=== PATIENT | male | born 1990 | race Caucasian/White ===

== ENCOUNTER 2016-09-22 04:36 | Emergency (ER) | payer SELFPAY ==
[2016-09-22 04:46] VITALS: BP 211/125
--- NOTE | 2016-09-22 05:01 | EDM.PDOC ---
ED HPI GENERAL MEDICAL PROBLEM - General Chief Complaint: Respiratory Problem Stated Complaint: sob chest pain sore throat Time Seen by Provider: 09/22/16 05:01 - History of Present Illness INITIAL COMMENTS - FREE TEXT/NARRATIVE: 25-year-old male presents emergency room with a continued cough. Patient's been coughing for over 2 weeks. He just finished a round of doxycycline about a week ago. He is not getting any better. He's had any fevers or chills he hasn't been going cough that sometimes makes him want to throw up. Patient has underlying reactive airway disease and asthma he uses his nebulizer as directed and uses his MDI at least 4 times a day. He started to get some chest wall irritation with deep breathing and has been using Tylenol and Motrin for this. It helps somewhat Middle Chest Pain Score (Numeric/FACES): 8 - Related Data Allergies Allergy/AdvReac Type Severity Reaction Status Date / Time No Known Allergies Allergy Verified 09/22/16 04:46 Home Meds: Home Meds Lisinopril [Prinivil] 40 mg PO DAILY 07/12/14 [History] Albuterol [Proventil HFA] 6.7 gm INH Q4H PRN 09/22/16 [History] Budesonide/Formoterol Fumarate [Symbicort 160-4.5 Mcg Inhaler] 1 puff IH DAILY 09/22/16 [History] Clarithromycin [Biaxin] 500 mg PO BID #20 tablet 09/22/16 [Rx] Past Medical History HEENT History: Reports: Other (see below) Other HEENT History: strep throat Cardiovascular History: Reports: Hypertension Respiratory History: Reports: Asthma Other Respiratory History: hospitalized with pleurisy Musculoskeletal History: Reports: Gout Social & Family History - Family History Family Medical History: Noncontributory - Tobacco Use Smoking Status *Q: Never Smoker Years of Tobacco use: 10 Packs/Tins Daily: 1 Used Tobacco, but Quit: Yes Month Tobacco Last Used: Second Hand Smoke Exposure: No - Caffeine Use Caffeine Use: Reports: None - Alcohol Use Days Per Week of Alcohol Use: 7 Number of Drinks Per Day: 3 Total Drinks Per Week: 21 - Recreational Drug Use Recreational Drug Use: Yes Recreational Drug Type: Reports: Marijuana/Hashish Recreational Drug Use Frequency: Socially ED ROS GENERAL - Review of Systems Review Of Systems: See Below Constitutional: Reports: no symptoms HEENT: Reports: Other (Discuss some vague congestion) Respiratory: Reports: Shortness of Breath, Wheezing (He has wheezing if he doesn 't uses inhaler), Pleuritic Chest Pain, Cough, Sputum Cardiovascular: Denies: Chest pain, Dyspnea on exertion, Palpitations GI/Abdominal: Reports: No symptoms Neurological: Reports: No Symptoms ED EXAM, GENERAL - Physical Exam Exam: See Below Exam Limited By: No limitations General Appearance: alert, no apparent distress Ears: normal external exam, normal canal, hearing grossly normal, normal TMs Nose: normal inspection, other (Mild mucosal erythema). No: clear rhinorrhea Throat/Mouth: Normal inspection, Normal lips, Normal teeth, Normal gums, Normal oropharynx, Normal voice, No airway compromise Head: atraumatic, normocephalic Neck: normal inspection, supple, non-tender, full range of motion. No: lymphadenopathy (L), lymphadenopathy (R) Cardiovascular: regular rate, rhythm, no edema, no murmur Course - Vital Signs Last Recorded V/S: Last Vital Signs Temp 35.8 C 09/22/16 04:43 Pulse 105 H 09/22/16 04:43 Resp 22 H 09/22/16 04:43 BP 211/125 H 09/22/16 04:43 Pulse Ox 95 09/22/16 04:43 - Orders/Labs/Meds Orders: Active Orders 24 hr Category Date Time Status Chest 2V [CR] Stat Exams 09/22/16 05:17 Taken CULTURE STREP A CONFIRMATION [] Stat Lab 09/22/16 05:20 Results STREP SCRN A RAPID W CULT CONF [RM] Stat Lab 09/22/16 05:20 Results - Re-Assessments/Exams Free Text/Narrative Re-Assessment/Exam: 09/22/16 06:07 Chest x-ray doubtful for infiltrate or other acute changes rapid strep negative. The patient recently finished a course of doxycycline under milligrams twice daily he finished this about a week ago he was on a prednisone taper this did not seem to help. We'll try him on Biaxin. Departure - Departure Time of Disposition: 06:15 Disposition: Home, Self-Care 01 Clinical Impression: Bronchitis - Discharge Information Prescriptions: Clarithromycin [Biaxin] 500 mg PO BID #20 tablet Referrals: Ai Menon NP [Primary Care Provider] - Forms: ED Department Discharge Additional Instructions: Return to the emergency room with any questions or problems. You have been started on Biaxin this is an antibiotic take it twice daily until all gone. Followup in the clinic early next week for recheck. - My Orders Last 24 Hours: My Active Orders 09/22/16 05:17 Chest 2V [CR] Stat 09/22/16 05:20 CULTURE STREP A CONFIRMATION [RM] Stat STREP SCRN A RAPID W CULT CONF [RM] Stat - Assessment/Plan Last 24 Hours: My Active Orders 09/22/16 05:17 Chest 2V [CR] Stat 09/22/16 05:20 CULTURE STREP A CONFIRMATION [RM] Stat STREP SCRN A RAPID W CULT CONF [RM] Stat
--- NOTE | 2016-09-22 08:59 | CR ---
Chest: Two views of the chest were obtained. Comparison: Previous chest x-ray of 01/28/16. Heart size and mediastinum are normal. Lungs are clear. Bony structures are unremarkable for the patient's age. Slight deformity partially visualized within the right acromioclavicular joint presumably due to old trauma. Impression: 1. Incidental finding. Nothing acute is identified on two-view chest x-ray. Diagnostic code #2
== END 2016-09-22 06:25 | disposition home or self-care (01) ==
LOC: JD.ED 04:36
DX: J40 Bronchitis, not specified as acute or chronic (principal); I10 Essential (primary) hypertension; M10.9 Gout, unspecified
CPT/HCPCS: 71020; 71020-26; 87081; 87430; 99283; 99284

== ENCOUNTER 2016-10-21 15:43 | Emergency (ER) | payer SELFPAY ==
[2016-10-21 15:59] VITALS: BP 160/93
--- NOTE | 2016-10-21 16:09 | EDM.PDOC ---
ED HPI GENERAL MEDICAL PROBLEM - General Chief Complaint: Lower Extremity Injury/Pain Stated Complaint: L ANKLE PAIN Time Seen by Provider: 10/21/16 16:08 - History of Present Illness INITIAL COMMENTS - FREE TEXT/NARRATIVE: A 25-year-old male presents emergency room with L ankle pain. Yesterday the patient was getting out of his car and twisted his ankle he heard a pop really did not develop any significant discomfort to later last night he awoke with significant pain on the outside of his ankle and to a lesser degree in the inside of his ankle. Patient has a history recurrent ankle sprains on the side. He injured it when he is playing football and he injured it at another time as he child. Left Feet Pain Score (Numeric/FACES): 6 - Related Data Allergies Allergy/AdvReac Type Severity Reaction Status Date / Time No Known Allergies Allergy Verified 09/22/16 04:46 Home Meds: Home Meds Lisinopril [Prinivil] 40 mg PO DAILY 07/12/14 [History] Albuterol [Proventil HFA] 6.7 gm INH Q4H PRN 09/22/16 [History] Budesonide/Formoterol Fumarate [Symbicort 160-4.5 Mcg Inhaler] 1 puff IH DAILY 09/22/16 [History] Acetaminophen/HYDROcodone [[place] 325-5 MG] 1 - 2 tab PO Q6H PRN #15 tablet 10/21 [Rx] Past Medical History HEENT History: Reports: Other (See Below) Other HEENT History: freq strep throat Cardiovascular History: Reports: Hypertension Respiratory History: Reports: Asthma Other Respiratory History: hospitalized with pleurisy Musculoskeletal History: Reports: Gout Social & Family History - Family History Family Medical History: Noncontributory - Tobacco Use Smoking Status *Q: Current Every Day Smoker Years of Tobacco use: 12 Packs/Tins Daily: 0.5 Used Tobacco, but Quit: Yes Month Tobacco Last Used: Second Hand Smoke Exposure: No - Caffeine Use Caffeine Use: Reports: Energy Drinks, Soda - Alcohol Use Days Per Week of Alcohol Use: 7 Number of Drinks Per Day: 3 Total Drinks Per Week: 21 - Recreational Drug Use Recreational Drug Use: Yes Recreational Drug Type: Reports: Marijuana/Hashish Other Recreational Drug Type: stopped 2014 when he went to skilled nursing Recreational Drug Use Frequency: Socially Review of Systems - Review of Systems Review Of Systems: See Below Constitutional: Reports: No Symptoms Respiratory: Reports: No Symptoms Cardiovascular: Reports: No Symptoms GI/Abdominal: Reports: No Symptoms ED EXAM, GENERAL - Physical Exam Exam: See Below Exam Limited By: No Limitations General Appearance: Alert, No Apparent Distress Respiratory/Chest: No Respiratory Distress, Lungs Clear, Normal Breath Sounds Cardiovascular: Regular Rate, Rhythm, No Edema, No Murmur Extremities: Other (Examination left lower leg reveals no proximal discomfort with palpation getting close to the ankle however on the lateral aspect he's got significant swelling no erythema no warmth swelling is over the anterior talofibular ligament and calcaneofibular ligament. He has mild discomfort with palpation over the lateral posterior ankle mild discomfort over the medial ankle no pain with palpation of the foot or fifth metatarsal. Neurovascular status of the foot is normal) Course - Vital Signs Last Recorded V/S: Last Vital Signs Temp 36.3 C 10/21/16 15:58 Pulse 122 H 10/21/16 15:58 Resp 20 10/21/16 15:58 BP 160/93 H 10/21/16 15:58 Pulse Ox 96 10/21/16 15:58 - Orders/Labs/Meds Orders: Active Orders 24 hr Category Date Time Status Ankle Min 3V Lt [CR] Stat Exams 10/21/16 16:20 Taken - Re-Assessments/Exams Free Text/Narrative Re-Assessment/Exam: 10/21/16 17:27 X-ray examination of the foot is negative for acute fracture dislocation he's got a old calcification just inferior to the distal fibula.. Patient will be placed in a walking boot. Departure - Departure Time of Disposition: 17:28 Disposition: Home, Self-Care 01 Clinical Impression: Left ankle injury - Discharge Information Prescriptions: Acetaminophen/HYDROcodone [[place] 325-5 MG] 1 - 2 tab PO Q6H PRN #15 tablet PRN Reason: Pain Forms: ED Department Discharge Additional Instructions: Return to the emergency room with any questions or problems. Wear the walking boot at all times until advised otherwise. Followup in the clinic in 2-3 weeks for recheck. Use ibuprofen as needed for discomfort. You've been given a few [place] see you can get some rest in the evenings. Allow 12 hours after using this medication before driving or returning to work. - My Orders Last 24 Hours: My Active Orders 10/21/16 16:20 Ankle Min 3V Lt [CR] Stat - Assessment/Plan Last 24 Hours: My Active Orders 10/21/16 16:20 Ankle Min 3V Lt [CR] Stat
--- NOTE | 2016-10-24 13:03 | CR ---
Left ankle: Three views of the left ankle were obtained. Comparison: No prior ankle study. Well-corticated bony density is seen off the lateral ankle compatible with old injury. Soft tissue swelling is noted. Ankle mortise is symmetric. No fracture or other abnormality is seen. Impression: 1. Incidental findings as noted above. No acute bony abnormality is identified. Diagnostic code #2
== END 2016-10-21 17:40 | disposition home or self-care (01) ==
LOC: JD.ED 15:43
DX: S99.912A Unspecified injury of left ankle, initial encounter (principal); I10 Essential (primary) hypertension; J45.909 Unspecified asthma, uncomplicated; F17.210 Nicotine dependence, cigarettes, uncomplicated; Z79.899 Other long term (current) drug therapy; X50.1XXA Overexertion from prolonged static or awkward postures, initial encounter
CPT/HCPCS: 73610-26-LT; 73610-LT; 99283

== ENCOUNTER 2016-10-25 20:38 | Emergency (ER) | payer SELFPAY ==
[2016-10-25 20:47] VITALS: BP 187/79
--- NOTE | 2016-10-25 21:48 | EDM.PDOC ---
ED HPI GENERAL MEDICAL PROBLEM - General Chief Complaint: Lower Extremity Injury/Pain Stated Complaint: L ANKLE PAIN Time Seen by Provider: 10/25/16 21:00 Source of Information: Reports: Patient History Limitations: Reports: No Limitations - History of Present Illness INITIAL COMMENTS - FREE TEXT/NARRATIVE: 25-year-old male presents to the ED with increasing pain in his left ankle. He reports he had a minor inversion injury to the ankle about 4 days ago and was seen to the ED. X-rays were done and showed an old avulsion fracture off the distal aspect of the fibula but no no fractures. Sam boot and has done well for the first 36 hours. Since that time however the ankle has become more swollen and severely painful. He could no longer walk or weight-bear at all. He did not reinjure to his knowledge. Onset: Gradual Onset Date: 10/21/16 (Initial injury was on the .) Duration: Day(s): (Severe pain left ankle 48 hours) Location: Reports: Lower Extremity, Left Quality: Reports: Ache, Sharp, Stabbing, Throbbing Severity: Severe (Severe pain with any movement of all of the ankle. Grades it as 10 out of 10.) Improves with: Reports: None (Nothing seems to help. He's been taking Motrin high doses with no relief. Also been using Hydrocodone 5-325 mg tablets with no relief.) Worsens with: Reports: Movement Context: Reports: Trauma. 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: NSAIDS, Other (see below) (High-dose Motrin 800 mg every 6 hours hydrocodone 5/3/25 milligrams tablets usually 2 every 4 hours.) Left Ankle Pain Score (Numeric/FACES): 8 - Related Data Allergies Allergy/AdvReac Type Severity Reaction Status Date / Time No Known Allergies Allergy Verified 09/22/16 04:46 Home Meds: Home Meds Lisinopril [Prinivil] 40 mg PO DAILY 07/12/14 [History] Albuterol [Proventil HFA] 6.7 gm INH Q4H PRN 09/22/16 [History] Budesonide/Formoterol Fumarate [Symbicort 160-4.5 Mcg Inhaler] 1 puff IH DAILY 09/22/16 [History] Acetaminophen/HYDROcodone [[place] 325-5 MG] 1 - 2 tab PO Q6H PRN #15 tablet 10/21 [Rx] Diclofenac Sodium [Voltaren] 50 mg PO TIDMEALS #30 tab.ec 10/25/16 [Rx] oxyCODONE HCl/Acetaminophen [Percocet 5-325 mg Tablet] 1 - 2 each PO Q4H PRN #5 tablet 10/25/16 [Rx] predniSONE [Prednisone] 20 mg PO TID #21 tablet 10/25/16 [Rx] Past Medical History HEENT History: Reports: Other (See Below) Other HEENT History: freq strep throat Cardiovascular History: Reports: Hypertension Respiratory History: Reports: Asthma Other Respiratory History: hospitalized with pleurisy Musculoskeletal History: Reports: Gout (History of gout particularly involving his first M TP joints bilaterally. Worse on the left side than on the right) Social & Family History - Family History Family Medical History: Noncontributory - Tobacco Use Smoking Status *Q: Former Smoker Years of Tobacco use: 12 Packs/Tins Daily: 0.5 Used Tobacco, but Quit: Yes Month Tobacco Last Used: 1 month Second Hand Smoke Exposure: No - Caffeine Use Caffeine Use: Reports: Coffee, Soda - Alcohol Use Days Per Week of Alcohol Use: 7 Number of Drinks Per Day: 3 Total Drinks Per Week: 21 - Recreational Drug Use Recreational Drug Use: No Recreational Drug Type: Reports: Marijuana/Hashish Other Recreational Drug Type: stopped 2014 when he went to detention Recreational Drug Use Frequency: Socially - Living Situation & Occupation Living situation: Reports: Single Occupation: Employed Review of Systems - Review of Systems Review Of Systems: See Below Constitutional: Reports: No Symptoms Eyes: Reports: No Symptoms Ears: Reports: No Symptoms Nose: Reports: No Symptoms Mouth/Throat: Reports: No Symptoms Respiratory: Reports: No Symptoms Cardiovascular: Reports: No Symptoms GI/Abdominal: Reports: No Symptoms Genitourinary: Reports: No Symptoms Musculoskeletal: Reports: No Symptoms, Joint Pain (Left ankle.) Skin: Reports: No Symptoms Neurological: Reports: No Symptoms ED EXAM, GENERAL - Physical Exam Exam: See Below (Left ankle. See history of present illness) Exam Limited By: No Limitations General Appearance: Alert, WD/WN, Moderate Distress Peripheral Pulses: 2+: Posterior Tibial (L), Posterior Tibial (R), Dorsalis Pedis (L), Dorsalis Pedis (R) Extremities: Other (Examination was limited to his left ankle. The entire ankle is very swollen and very warm to palpation. There is ecchymoses along the lateral aspect of ankle compatible with a recent inversion sprain. There is mild tenderness along the medial joint compartment as well as the posterior joint compartment particularly lateral to the Achilles tendon insertion bilaterally. There is pain across the entire anterior ankle joint as well. Any movement such as plantar flexion or dorsiflexion causes exquisite severe pain. Suspect gouty arthritis.) Neurological: Alert, Oriented, CN II-XII Intact, Normal Cognition Psychiatric: Normal Affect, Normal Mood Skin Exam: Warm, Dry, Intact, Normal Color, No Rash Course - Vital Signs Last Recorded V/S: Last Vital Signs Temp 36.5 C 10/25/16 20:45 Pulse 111 H 10/25/16 20:45 Resp 20 10/25/16 20:45 BP 187/79 H 10/25/16 20:45 Pulse Ox 98 10/25/16 20:45 - Orders/Labs/Meds Meds: Medications Discontinued Medications Generic Name Dose Route Start Last Admin Trade Name Freq PRN Reason Stop Dose Admin Indomethacin 50 mg 10/25/16 21:57 10/25/16 22:03 Indocin PO 10/25/16 21:58 50 mg ONETIME ONE Administration Oxycodone/Acetaminophen 3 tab 10/25/16 21:57 10/25/16 22:03 Percocet 325-5 Mg PO 10/25/16 21:58 3 tab ONETIME ONE Administration Prednisone 30 mg 10/25/16 21:57 10/25/16 22:02 Prednisone PO 10/25/16 21:58 30 mg ONETIME ONE Administration - Radiology Interpretation Free Text/Narrative:: 25-year-old male presents to the ED for reevaluation of left ankle pain. Patient states that he had a mild inversion sprain of the ankle about 4 days ago. He was placed in a cam walker and he states for the first day or so it seemed to help quite a bit. Over the last 48 hours ankles become increasingly more painful and swollen. Patient can't stand the pain and hydrocodone 5 is not helping. On examination the ankle itself is diffusely swollen both medially and laterally. There is ecchymoses along the lateral aspect of the ankle in the distribution of the calcaneal fibular ligament as well as the anterior ligaments of the lateral ankle. There is very warm to palpation and he has pain around the Achilles tendon as well as the posterior ankle joint. By history he has a history of recurrent gout and I suspect out her set up in his area of mild trauma. Plan I will review his x-rays. - Re-Assessments/Exams Free Text/Narrative Re-Assessment/Exam: 10/25/16 22:00 x-rays were reviewed and do not reveal any acute fractures. There is an old avulsion fracture off the distal lateral malleolus. Clinically he has got gout attack. Strongly for him to get to the drugstore and therefore I will give him Percocet 5/3/25 milligrams tablets 3 orally now as he is 350 pounds. Prednisone 30 mg orally now. Indomethacin 50 mg orally now. 5 Percocet 5 /3/25 milligram tablets to go home with. Scripts were written for Voltaren 50 mg 3 times a day for 10 days. Prednisone 20 mg 3 times a day for 7 days. Percocet 10/3/25 one to 2 tablets every 4-6 hours as needed for pain relief tomorrow. Patient should expect marked improvement in the next 48 hours as the gout inflammation settles. Advised to have his uric acid checked Reason the doctor's office to see if he needs medication daily to suppress his uric acid level. Of note he is markedly obese. Departure - Departure Time of Disposition: 21:43 Disposition: Home, Self-Care 01 Condition: Fair Clinical Impression: Acute gout Sprain of left ankle Qualifiers: Encounter type: initial encounter Involved ligament of ankle: calcaneofibular ligament Qualified Code(s): S93.412A - Sprain of calcaneofibular ligament of left ankle, initial encounter - Discharge Information Prescriptions: Diclofenac Sodium [Voltaren] 50 mg PO TIDMEALS #30 tab.ec oxyCODONE HCl/Acetaminophen [Percocet 5-325 mg Tablet] 1 - 2 each PO Q4H PRN #5 tablet PRN Reason: pain relief. predniSONE [Prednisone] 20 mg PO TID #21 tablet Instructions: Gout, [id number], Ankle Sprain, [id number] Referrals: Sinan,Ai M, POLISHER NUMERAL [Primary Care Provider] - Forms: ED Department Discharge, Return to Work/School Form Additional Instructions: Evaluation in the emergency department tonight in regards to increasing pain in left ankle that suffered a minor sprain 4 days ago. I did review the x-rays that were done at that time and he did reveal an old avulsion fracture off the distal lateral malleolus. There are no new fractures however within those bones. Nation of the ankle reveals it to be very hot and inflamed and swollen compatible with gouty arthritis. You have a history of the same. Quite often, will set up a house in an area that has been recently traumatized. Treatment is therefore prednisone 20 mg 3 times daily for the next 7 days. Use Voltaren 50 mg 3 times daily for the next 10 days to relieve pain and inflammation. Percocet 10/3/25 milligrams tablets 1 or 2 every 4-6 hours as needed for pain relief. Expect marked improvement in the next 48-72 hours.
[2016-10-25] MEDS ORDERED: Indomethacin 25 MG Cap PO ONE (21:57)
[2016-10-25] MEDS ORDERED: Acetaminophen/oxyCODONE 325-5 MG Tab PO ONE (21:57)
[2016-10-25] MEDS ORDERED: predniSONE 20 MG Tab PO ONE (21:57)
== END 2016-10-25 22:10 | disposition home or self-care (01) ==
LOC: JD.ED 20:38
DX: S93.412A Sprain of calcaneofibular ligament of left ankle, initial encounter (principal); M10.9 Gout, unspecified; I10 Essential (primary) hypertension; J45.909 Unspecified asthma, uncomplicated; Z87.891 Personal history of nicotine dependence; Z79.899 Other long term (current) drug therapy; X50.1XXA Overexertion from prolonged static or awkward postures, initial encounter
CPT/HCPCS: 99283; A9270

== ENCOUNTER 2017-06-19 09:00 | Emergency (ER) | payer SELFPAY ==
[2017-06-19 09:18] VITALS: BP 179/116
[2017-06-19] MEDS ORDERED: Ibuprofen 800 MG Tab PO ONE (09:31)
[2017-06-19] MEDS ORDERED: Acetaminophen/oxyCODONE 325-5 MG Tab PO ONE (09:31)
--- NOTE | 2017-06-19 09:35 | EDM.PDOC ---
ED HPI GENERAL MEDICAL PROBLEM - General Chief Complaint: Lower Extremity Injury/Pain Stated Complaint: L KNEE PAIN Time Seen by Provider: 06/19/17 09:30 Source of Information: Reports: Patient History Limitations: Reports: No Limitations - History of Present Illness INITIAL COMMENTS - FREE TEXT/NARRATIVE: 26-year-old male who is morbidly obese slipped and fell on the ice last night injuring his left knee. States his knee went out to the side i.e. valgus strain to the medial compartment. He states he had a crawl to his car and with the aid of pulling up on the handles of the dorsum sore and he was able to get back up to a standing position get into the car drive home. Socially the knee is become more painful overnight and he is unable to weight-bear this morning. Denies any other injuries. He did not hit his head or injure his wrists elbows or shoulders. He was told he had a paertial tear to his ACL ligament in the same knee in high school. No surgical procedures. This morning when he tried to weight-bear he felt that there was some instability in his knee. Onset: Sudden Onset Date: 06/19/17 Onset Time: 22:30 Duration: Hour(s): Location: Reports: Lower Extremity, Left (Left knee particularly the medial compartment.) Quality: Reports: Ache, Throbbing Severity: Moderate (Unable to weight-bear this morning.) Improves with: Reports: None Worsens with: Reports: Other, Movement Context: Reports: Trauma (Slipped and fell on ice last night.). 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 Left Knee Pain Score (Numeric/FACES): 10 - Related Data Allergies Allergy/AdvReac Type Severity Reaction Status Date / Time No Known Allergies Allergy Verified 06/19/17 09:13 Home Meds: Home Meds Lisinopril [Prinivil] 40 mg PO DAILY 07/12/14 [History] Albuterol [Proventil HFA] 6.7 gm INH Q4H PRN 09/22/16 [History] Budesonide/Formoterol Fumarate [Symbicort 160-4.5 Mcg Inhaler] 1 puff IH DAILY PRN 09/22/16 [History] Acetaminophen/oxyCODONE [Percocet 325-10 MG] 1 - 2 tab PO Q6H PRN #24 tab [Rx] Past Medical History HEENT History: Reports: Other (See Below) Other HEENT History: freq strep throat Cardiovascular History: Reports: Hypertension Respiratory History: Reports: Asthma Other Respiratory History: hospitalized with pleurisy Musculoskeletal History: Reports: Gout, Other (See Below) Other Musculoskeletal History: ACL injury to left knee - Past Surgical History HEENT Surgical History: Reports: None Cardiovascular Surgical History: Reports: None Respiratory Surgical History: Reports: None Musculoskeletal Surgical History: Reports: None Social & Family History - Family History Family Medical History: Noncontributory - Tobacco Use Smoking Status *Q: Current Every Day Smoker Years of Tobacco use: 10 Packs/Tins Daily: 0.5 Used Tobacco, but Quit: Yes Month Tobacco Last Used: 1 month Second Hand Smoke Exposure: No - Caffeine Use Caffeine Use: Reports: Tea - Alcohol Use Days Per Week of Alcohol Use: 7 Number of Drinks Per Day: 3 Total Drinks Per Week: 21 - Recreational Drug Use Recreational Drug Use: No Recreational Drug Type: Reports: Marijuana/Hashish Other Recreational Drug Type: stopped 2014 when he went to long-term Recreational Drug Use Frequency: Socially - Living Situation & Occupation Living situation: Reports: Single Occupation: Employed Review of Systems - Review of Systems Review Of Systems: See Below Constitutional: Reports: No Symptoms Eyes: Reports: No Symptoms Ears: Reports: No Symptoms Nose: Reports: No Symptoms Mouth/Throat: Reports: No Symptoms Respiratory: Reports: No Symptoms Cardiovascular: Reports: No Symptoms GI/Abdominal: Reports: No Symptoms Genitourinary: Reports: No Symptoms Musculoskeletal: Reports: Back Pain Skin: Reports: No Symptoms Neurological: Reports: No Symptoms Psychiatric: Reports: No Symptoms ED EXAM, GENERAL - Physical Exam Exam: See Below Exam Limited By: No Limitations General Appearance: Alert, WD/WN, Mild Distress, Other (Morbidly obese fellow.) Eye Exam: Bilateral Eye: Normal Inspection Head: Atraumatic, Normocephalic Neck: Normal Inspection, Supple, Non-Tender, Full Range of Motion. No: Lymphadenopathy (L), Lymphadenopathy (R) Respiratory/Chest: No Respiratory Distress, Lungs Clear, Normal Breath Sounds Cardiovascular: Normal Peripheral Pulses, Regular Rate, Rhythm, No Edema, No Gallop, No Murmur Peripheral Pulses: 2+: Posterior Tibial (L), Posterior Tibial (R), Dorsalis Pedis (L), Dorsalis Pedis (R) GI/Abdominal: Soft, Non-Tender, No Distention, No Abnormal Bruit, No Mass, Pelvis Stable, Other (Abdominal girth precludes ability to palpate solid organs. ) Back Exam: Normal Inspection, Full Range of Motion. No: CVA Tenderness (L), CVA Tenderness (R) Extremities: No Pedal Edema, Other (Examination was limited to his left knee. There is no true effusion. The lateral compartment appears to be normal pain is localized more to the medial compartment particular the MCL both superior and inferior insertion sites. The cruciate ligaments are intact. I will have x-rays done on the knee prior to stressing the medial compartment.) Neurological: Alert, Oriented, CN II-XII Intact, Normal Cognition, Other. No: Normal Gait Psychiatric: Normal Affect, Normal Mood (Is unable to weight-bear.) Skin Exam: Warm, Dry, Intact, Normal Color, No Rash Course - Vital Signs Last Recorded V/S: Last Vital Signs Temp 36.1 C 06/19/17 09:13 Pulse 121 H 06/19/17 09:13 Resp 18 06/19/17 09:13 BP 179/116 H 06/19/17 09:13 Pulse Ox 93 L 06/19/17 09:13 - Orders/Labs/Meds Orders: Active Orders 24 hr Category Date Time Status Knee 3V Lt [CR] Stat Exams 06/19/17 09:30 Taken Meds: Medications Discontinued Medications Generic Name Dose Route Start Last Admin Trade Name Thania PRN Reason Stop Dose Admin Ibuprofen 800 mg 06/19/17 09:31 06/19/17 09:50 Motrin PO 06/19/17 09:32 800 mg ONETIME ONE Administration Oxycodone/Acetaminophen 2 tab 06/19/17 09:31 06/19/17 09:50 Percocet 325-5 Mg PO 06/19/17 09:32 2 tab ONETIME ONE Administration - Radiology Interpretation Free Text/Narrative:: 26-year-old male presents the ED with an acute injury to his left knee after slipping and falling on ice last evening about 20-30 hours. Suffered a valgus strain to the knee by history. Examination reveals pain along the medial joint space particularly over the distribution of the MCL both superior and inferior insertion sites and at the joint space. It there is no joint effusion. Cruciate ligaments appear to be intact. X-rays of the need to be done. - Re-Assessments/Exams Free Text/Narrative Re-Assessment/Exam: 06/19/17 10:48 x-rays of his knee is normal. I.e. stress the MCL and I can open it up to a grade 1 to strain. Again no effusion within the knee evident. He will be placed in a knee immobilizer and be nonweightbearing crutch walking for the rest of the week. I will have him follow-up with orthopedic surgery early next week for reassessment. Percocet 10//25 milligram tablets one or 2 every 6 hours as needed for pain relief primarily at bedtime. Motrin 800 mg every 6-8 hours otherwise. Ice pack to the area one half hour out of every 4 hours today and tomorrow. Note given to excuse him from work for the next 3-4 days. Departure - Departure Time of Disposition: 10:49 Disposition: Home, Self-Care 01 Condition: Fair Clinical Impression: Grade 2 sprain of medial collateral ligament of knee Qualifiers: Encounter type: initial encounter Laterality: left Qualified Code(s): S83.412A - Sprain of medial collateral ligament of left knee, initial encounter - Discharge Information Prescriptions: Acetaminophen/oxyCODONE [Percocet 325-10 MG] 1 - 2 tab PO Q6H PRN #24 tab PRN Reason: Pain Referrals: Ai Menon [employer] AID ATTENDANT [Primary Care Provider] - Forms: ED Department Discharge Additional Instructions: Evaluation in the emergency department this morning in regards to acute left knee injury that occurred about 20-30 hours last night. This occurred as a result a slip on the ice. By history there was a significant valgus strain to the knee with injury to the medial collateral ligament. No internal derangement is appreciated on exam the ACL PCL appear to be intact with no blood within the knee joint. X-rays of the knee proved to have no bony injuries as well. Clinically you have suffered a grade 2 strain of the medial collateral ligament. Possibility of injury to the medial meniscus exists due to the ligament attachment to the outside aspect of the cartilage within your knee. Treatment is rest and elevation for the next 2 days. Ice pack to the area one half hour out of every 4 hours today and tomorrow. Nonweightbearing crutch walking. Should be in a knee immobilizer wind up and around. Otherwise it could be open when you have your foot elevated and at home. Suggest follow-up with Dr. Muniz orthopedic surgeon in 7-10 days time. Please call [phone] to make an appointment. Off work for the next 4-5 days until you can weight-bear with brace alone and do not need crutches. Continue Motrin 600 mg every 6 hours for pain relief. Percocet 10/325 milligram tabs one or 2 every 6 hours as necessary for pain relief primarily at bedtime. Not operate a motor vehicle well taking this strong pain medication. - My Orders Last 24 Hours: My Active Orders 06/19/17 09:30 Knee 3V Lt [CR] Stat - Assessment/Plan Last 24 Hours: My Active Orders 06/19/17 09:30 Knee 3V Lt [CR] Stat
--- NOTE | 2017-06-19 11:43 | CR ---
Left knee: AP, lateral and sunrise patellar views of the left knee were obtained. Comparison: No prior knee exam. Medial and lateral joint spaces are maintained in height. No joint effusion is seen. No fracture or other bony abnormality is identified. Impression: 1. No abnormality is identified on three view left knee exam. Diagnostic code #1
== END 2017-06-19 11:00 | disposition home or self-care (01) ==
LOC: JD.ED 09:00
DX: S83.412A Sprain of medial collateral ligament of left knee, initial encounter (principal); I10 Essential (primary) hypertension; F17.210 Nicotine dependence, cigarettes, uncomplicated; Z79.899 Other long term (current) drug therapy; W00.9XXA Unspecified fall due to ice and snow, initial encounter
CPT/HCPCS: 73562; 99284; A9270; 99283

== ENCOUNTER 2017-06-21 14:51 | Emergency (ER) | payer SELFPAY ==
--- NOTE | 2017-06-21 15:11 | EDM.PDOC ---
ED HPI GENERAL MEDICAL PROBLEM - General Chief Complaint: Lower Extremity Injury/Pain Stated Complaint: LEFT KNEE PAIN Time Seen by Provider: 06/21/17 15:10 Source of Information: Reports: Patient - History of Present Illness INITIAL COMMENTS - FREE TEXT/NARRATIVE: Patient is here for reevaluation of left knee pain. Patient states that he did slip/twist on the ice on [place]. He was evaluated in the emergency room and had reported negative x-ray. He was told to follow-up with his primary provider in orthopedics the patient is unable to get in with orthopedics for several weeks. He is here for recheck of his knee as his pain is not gone. Patient also questioning if there is other sites for knee brace as he feels this is not very comfortable. Left Knee Pain Score (Numeric/FACES): 10 - Related Data Allergies Allergy/AdvReac Type Severity Reaction Status Date / Time No Known Allergies Allergy Verified 06/19/17 09:13 Home Meds: Home Meds Lisinopril [Prinivil] 40 mg PO DAILY 07/12/14 [History] Albuterol [Proventil HFA] 6.7 gm INH Q4H PRN 09/22/16 [History] Budesonide/Formoterol Fumarate [Symbicort 160-4.5 Mcg Inhaler] 1 puff IH DAILY PRN 09/22/16 [History] Acetaminophen/oxyCODONE [Percocet 325-10 MG] 1 - 2 tab PO Q6H PRN #24 tab [Rx] Hydrocodone/Acetaminophen [Hydrocodon-Acetaminophen 5-325] 1 each PO Q6HR PRN # 15 tablet 06/21/17 [Rx] Past Medical History HEENT History: Reports: Other (See Below) Other HEENT History: freq strep throat Cardiovascular History: Reports: Hypertension Respiratory History: Reports: Asthma Other Respiratory History: hospitalized with pleurisy Musculoskeletal History: Reports: Gout, Other (See Below) Other Musculoskeletal History: ACL injury to left knee - Past Surgical History HEENT Surgical History: Reports: None Cardiovascular Surgical History: Reports: None Respiratory Surgical History: Reports: None Musculoskeletal Surgical History: Reports: None Social & Family History - Family History Family Medical History: Noncontributory - Tobacco Use Smoking Status *Q: Current Every Day Smoker Years of Tobacco use: 10 Packs/Tins Daily: 0.5 Used Tobacco, but Quit: Yes Month Tobacco Last Used: 1 month Second Hand Smoke Exposure: No - Caffeine Use Caffeine Use: Reports: Tea - Alcohol Use Days Per Week of Alcohol Use: 7 Number of Drinks Per Day: 3 Total Drinks Per Week: 21 - Recreational Drug Use Recreational Drug Use: No Recreational Drug Type: Reports: Marijuana/Hashish Other Recreational Drug Type: stopped 2014 when he went to half-way Recreational Drug Use Frequency: Socially - Living Situation & Occupation Living situation: Reports: Single Occupation: Employed Review of Systems - Review of Systems Review Of Systems: See Below Constitutional: Reports: No Symptoms Mouth/Throat: Reports: No Symptoms Respiratory: Reports: No Symptoms Cardiovascular: Reports: No Symptoms Musculoskeletal: Reports: Other (left knee pain and swelling) ED EXAM, GENERAL - Physical Exam Exam: See Below Exam Limited By: No Limitations General Appearance: Alert, WD/WN, No Apparent Distress Respiratory/Chest: No Respiratory Distress, Lungs Clear, Normal Breath Sounds Cardiovascular: Normal Peripheral Pulses, Regular Rate, Rhythm, No Murmur Extremities: Normal Inspection, Normal Range of Motion, Other (Left knee without swelling or ecchymosis. Negative anterior/posterior drawer. Negative Moon. Patient does have pain with varus stress.) Neurological: Alert, Oriented, No Motor/Sensory Deficits Skin Exam: Warm, Dry, Intact Course - Vital Signs Last Recorded V/S: Last Vital Signs Temp 96.1 F 06/21/17 15:13 Pulse 100 06/21/17 15:13 Resp 20 06/21/17 15:13 BP 139/85 06/21/17 15:13 Pulse Ox 95 06/21/17 15:13 - Re-Assessments/Exams Free Text/Narrative Re-Assessment/Exam: Patient is presents to the emergency room for recheck on left knee pain after an injury last Monday. Had x-ray 06/19/2017 demonstrated no abnormality. Patient has had no worsening in symptoms, he is here symptoms has not resolved. Patient exam basically unremarkable, question element this injury but MRI did not table in the emergency room nor is this emergent procedure. Patient will follow up with his PCP/orthopedics. Or certainly return to the emergency room if needed. Patient is to continue with his ibuprofen and ice his knee frequently. He is using hydrocodone for breakthrough pain. 06/21/17 16:39 Departure - Departure Time of Disposition: 16:34 Disposition: Home, Self-Care 01 Condition: Good Clinical Impression: Left knee pain - Discharge Information Prescriptions: Hydrocodone/Acetaminophen [Hydrocodon-Acetaminophen 5-325] 1 each PO Q6HR PRN # 15 tablet PRN Reason: Pain Referrals: Ai Menon, [employer] DEVELOPER [Primary Care Provider] - Forms: ED Department Discharge Additional Instructions: Rest, activity as tolerated. Continue to use your crutches and wearing your brace every day. You need to follow up with your primary provider this week. Follow-up with orthopedics as well. Dr Correa [phone] Dr Bran [phone] Continue with ibuprofen 600-800 mg 3 times a day. Ice 15 minutes every few hours as needed for the pain. Hydrocodone as needed for breakthrough pain. He may certainly return to the emergency room for any worsening or emergent symptoms.
[2017-06-21 15:15] VITALS: BP 139/85
== END 2017-06-21 16:50 | disposition home or self-care (01) ==
LOC: JD.ED 14:51
DX: M25.562 Pain in left knee (principal); I10 Essential (primary) hypertension; F17.210 Nicotine dependence, cigarettes, uncomplicated; Z79.899 Other long term (current) drug therapy
CPT/HCPCS: 99283

== ENCOUNTER 2017-06-27 21:25 | Emergency (ER) | payer SELFPAY ==
[2017-06-27 21:57] VITALS: BP 141/86
--- NOTE | 2017-06-27 22:30 | EDM.PDOC ---
ED HPI GENERAL MEDICAL PROBLEM - General Chief Complaint: Lower Extremity Injury/Pain Stated Complaint: LEFT KNEE PAIN Time Seen by Provider: 06/27/17 22:03 Source of Information: Reports: Patient History Limitations: Reports: No Limitations - History of Present Illness INITIAL COMMENTS - FREE TEXT/NARRATIVE: The patient presents with left knee pain. June 18 the patient slipped and fell outside and hurt his left knee. He was seen here and x-rays showed no fracture but he has medial knee pain and there is concern he may have torn a ligament. He was given something for pain, knee immobilizer and crutches. His dog chewed up his knee immobilizer and has no more pain meds. Onset: Sudden Duration: Week(s): Location: Reports: Lower Extremity, Left (medial knee) Quality: Reports: Sharp Severity: Moderate Improves with: Reports: Immobilization Worsens with: Reports: Movement Associated Symptoms: Reports: No Other Symptoms Left Knee Pain Score (Numeric/FACES): 2 - Related Data Allergies Allergy/AdvReac Type Severity Reaction Status Date / Time No Known Allergies Allergy Verified 06/27/17 21:53 Home Meds: Home Meds Lisinopril [Prinivil] 40 mg PO DAILY 07/12/14 [History] Albuterol [Proventil HFA] 6.7 gm INH Q4H PRN 09/22/16 [History] Budesonide/Formoterol Fumarate [Symbicort 160-4.5 Mcg Inhaler] 1 puff IH DAILY PRN 09/22/16 [History] Past Medical History HEENT History: Reports: Other (See Below) Other HEENT History: freq strep throat Cardiovascular History: Reports: Hypertension Respiratory History: Reports: Asthma Other Respiratory History: hospitalized with pleurisy Musculoskeletal History: Reports: Gout, Other (See Below) Other Musculoskeletal History: ACL injury to left knee - Past Surgical History HEENT Surgical History: Reports: None Cardiovascular Surgical History: Reports: None Respiratory Surgical History: Reports: None Musculoskeletal Surgical History: Reports: None Social & Family History - Family History Family Medical History: Noncontributory - Tobacco Use Smoking Status *Q: Current Every Day Smoker Years of Tobacco use: 10 Packs/Tins Daily: 0.5 Used Tobacco, but Quit: Yes Month Tobacco Last Used: 1 month Second Hand Smoke Exposure: No - Caffeine Use Caffeine Use: Reports: Tea - Alcohol Use Days Per Week of Alcohol Use: 7 Number of Drinks Per Day: 3 Total Drinks Per Week: 21 - Recreational Drug Use Recreational Drug Use: No Recreational Drug Type: Reports: Marijuana/Hashish Other Recreational Drug Type: stopped 2014 when he went to halfway Recreational Drug Use Frequency: Socially - Living Situation & Occupation Living situation: Reports: Single Occupation: Employed Review of Systems - Review of Systems Review Of Systems: See Below Constitutional: Reports: No Symptoms Eyes: Reports: No Symptoms Ears: Reports: No Symptoms Nose: Reports: No Symptoms Mouth/Throat: Reports: No Symptoms Respiratory: Reports: No Symptoms Cardiovascular: Reports: No Symptoms GI/Abdominal: Reports: No Symptoms Genitourinary: Reports: No Symptoms Musculoskeletal: Reports: Joint Pain (Left knee) ED EXAM, GENERAL - Physical Exam Exam: See Below Exam Limited By: No Limitations General Appearance: Alert, No Apparent Distress Ears: Normal External Exam Nose: Normal Inspection Head: Atraumatic, Normocephalic Neck: Normal Inspection Respiratory/Chest: No Respiratory Distress Extremities: Other (Pain upon palpation to the medial left knee) Course - Vital Signs Last Recorded V/S: Last Vital Signs Temp 97.4 F 06/27/17 21:54 Pulse 115 H 06/27/17 21:54 Resp 16 06/27/17 21:54 BP 141/86 H 06/27/17 21:54 Pulse Ox 96 06/27/17 21:54 - Orders/Labs/Meds Orders: Active Orders 24 hr Category Date Time Status Durable Medical Equipment for Discharge [DME for Oth 06/27/17 22:24 Ordered Discharge] [COMM] Stat - Re-Assessments/Exams Free Text/Narrative Re-Assessment/Exam: 06/27/17 22:28 I will try to get him a brace and something for pain. Departure - Departure Time of Disposition: 22:30 Disposition: Home, Self-Care 01 Condition: Good Clinical Impression: Left knee pain Qualifiers: Chronicity: acute Qualified Code(s): M25.562 - Pain in left knee Grade 2 sprain of medial collateral ligament of knee Qualifiers: Encounter type: subsequent encounter Laterality: left Qualified Code(s): S83.412D - Sprain of medial collateral ligament of left knee, subsequent encounter - Discharge Information Referrals: Ai Menon, [facility] [Primary Care Provider] - Additional Instructions: Wear the knee brace and use crutches. Use motrin or aleve for pain. Take the percocet as needed for pain. Follow up with Dr Muniz as scheduled. - My Orders Last 24 Hours: My Active Orders 06/27/17 22:24 Durable Medical Equipment for Discharge [DME for Discharge] [COMM] Stat - Assessment/Plan Last 24 Hours: My Active Orders 06/27/17 22:24 Durable Medical Equipment for Discharge [DME for Discharge] [COMM] Stat
== END 2017-06-27 22:45 | disposition home or self-care (01) ==
LOC: JD.ED 21:25
DX: S83.412A Sprain of medial collateral ligament of left knee, initial encounter (principal); I10 Essential (primary) hypertension; F17.210 Nicotine dependence, cigarettes, uncomplicated; Z79.899 Other long term (current) drug therapy; W01.0XXA Fall on same level from slipping, tripping and stumbling without subsequent striking against object, initial encounter
CPT/HCPCS: 99283

== ENCOUNTER 2017-07-03 15:34 | Emergency (ER) | payer SELFPAY ==
[2017-07-03 15:45] VITALS: BP 145/97
--- NOTE | 2017-07-03 16:35 | EDM.PDOC ---
ED HPI GENERAL MEDICAL PROBLEM - General Chief Complaint: Lower Extremity Injury/Pain Stated Complaint: L KNEE PAIN Time Seen by Provider: 07/03/17 16:09 Source of Information: Reports: Patient History Limitations: Reports: No Limitations - History of Present Illness INITIAL COMMENTS - FREE TEXT/NARRATIVE: 26-year-old male presents for evaluation and treatment of left knee pain. Initial injury occurred 2 weeks ago on June 19. Patient reports he initially said on some ice. He's been seen in the ER for his knee pain. This is his fourth visit in the last 2 weeks for knee pain. He reports pain mostly to the medial aspect of his left knee. Patient has been on crutches and a knee brace. He reports pain with walking. He states attempted to get an appointment with a provider in the clinic but was denied. He has not seen his primary care provider. He has appointment with Dr. Muniz on July 07. No numbness or tingling into the leg. Location: Reports: Lower Extremity, Left Left Knee Pain Score (Numeric/FACES): 6 - Related Data Allergies Allergy/AdvReac Type Severity Reaction Status Date / Time No Known Allergies Allergy Verified 06/27/17 21:53 Home Meds: Home Meds Lisinopril [Prinivil] 40 mg PO DAILY 07/12/14 [History] Albuterol [Proventil HFA] 6.7 gm INH Q4H PRN 09/22/16 [History] Budesonide/Formoterol Fumarate [Symbicort 160-4.5 Mcg Inhaler] 1 puff IH DAILY PRN 09/22/16 [History] Meloxicam 7.5 mg PO BID #20 tablet 07/03/17 [Rx] Past Medical History HEENT History: Reports: Other (See Below) Other HEENT History: freq strep throat Cardiovascular History: Reports: Hypertension Respiratory History: Reports: Asthma Other Respiratory History: hospitalized with pleurisy Musculoskeletal History: Reports: Gout, Other (See Below) Other Musculoskeletal History: ACL injury to left knee - Past Surgical History HEENT Surgical History: Reports: None Cardiovascular Surgical History: Reports: None Respiratory Surgical History: Reports: None Musculoskeletal Surgical History: Reports: None Social & Family History - Family History Family Medical History: Noncontributory - Tobacco Use Smoking Status *Q: Current Every Day Smoker Years of Tobacco use: 10 Packs/Tins Daily: 0.5 Used Tobacco, but Quit: Yes Month Tobacco Last Used: 1 month Second Hand Smoke Exposure: No - Caffeine Use Caffeine Use: Reports: Tea - Alcohol Use Days Per Week of Alcohol Use: 2 Number of Drinks Per Day: 6 Total Drinks Per Week: 12 - Recreational Drug Use Recreational Drug Use: No Recreational Drug Type: Reports: Marijuana/Hashish Other Recreational Drug Type: stopped 2014 when he went to [facility] Recreational Drug Use Frequency: Socially - Living Situation & Occupation Living situation: Reports: Single Occupation: Employed Review of Systems - Review of Systems Review Of Systems: See Below Musculoskeletal: Reports: Joint Pain (left knee). Denies: Joint Swelling Skin: Denies: Bruising, Wound Neurological: Denies: Numbness, Tingling ED EXAM, GENERAL - Physical Exam Exam: See Below Exam Limited By: No Limitations General Appearance: Alert, WD/WN, No Apparent Distress, Obese Respiratory/Chest: No Respiratory Distress Cardiovascular: Normal Peripheral Pulses, Regular Rate, Rhythm Peripheral Pulses: 2+: Posterior Tibial (L), Posterior Tibial (R), Dorsalis Pedis (L), Dorsalis Pedis (R) Extremities: Normal Inspection, Other (reports tenderness to the medial left knee, pain with valgus and varus stress testing, pain with anterior and posterior drawer, no laxity appreciated to ligament testing; able to flex knee to 90 degrees, reports pain with flexion) Neurological: Alert, Oriented, Normal Cognition Psychiatric: Normal Affect, Normal Mood Skin Exam: Warm, Dry, Normal Color. No: Increased Warmth Course - Vital Signs Last Recorded V/S: Last Vital Signs Temp 35.8 C 07/03/17 15:42 Pulse 118 H 07/03/17 15:42 Resp 16 07/03/17 15:42 BP 145/97 H 07/03/17 15:42 Pulse Ox 93 L 07/03/17 15:42 - Re-Assessments/Exams Free Text/Narrative Re-Assessment/Exam: 07/03/17 17:10 I reviewed the patient's previous ER records. I put in an outpatient order for him to have an MRI. I prescribed meloxicam for pain. He has received 3 prescriptions for controlled substances over the last 2 weeks for this. Is received total of 60 pain pills. Discharge instructions as documented. 07/03/17 18:18 After the patient was discharged he demanded to see me. He was upset by the prescription of meloxicam. He states that this with Michael Damon attempted to prescribe him some meloxicam. states it does not work for him. I informed him that given this a chronic problem I am unable to provide him any more narcotics here in the ER. Informed him that our policy is we do not chronic treat chronic pain. He should follow-up with his primary care provider if he is unable to see Dr. Muniz earlier. I do not doubt that he has an injury, however, given the chronic nature of this injury and I am not able to provide any more narcotic pain medication. Departure - Departure Time of Disposition: 17:10 Disposition: Home, Self-Care 01 Condition: Fair Clinical Impression: Left knee pain Qualifiers: Chronicity: acute Qualified Code(s): M25.562 - Pain in left knee - Discharge Information Prescriptions: Meloxicam 7.5 mg PO BID #20 tablet Instructions: Knee Pain, Adult Referrals: Ai Menon INFORMATION SYSTEMS DIRECTOR [Primary Care Provider] - Forms: ED Department Discharge Additional Instructions: An Order has been placed for you to have An outpatient MRI. Please call and asked to the radiology department to have the schedule. Meloxicam 1 tablet twice a day. may take [id number] Tylenol as needed for additional pain relief. Do not take more than 4 g of Tylenol from all sources in 1 day. Continue to use the knee brace and the crutches. recommend using heat and ice to the sore area for additional pain relief. Follow-up with Dr. Muniz as planned. Please return to the ER if your symptoms change or worsen.
== END 2017-07-03 17:54 | disposition home or self-care (01) ==
LOC: JD.ED 15:34
DX: M25.562 Pain in left knee (principal); I10 Essential (primary) hypertension; J45.909 Unspecified asthma, uncomplicated; F17.210 Nicotine dependence, cigarettes, uncomplicated; Z79.899 Other long term (current) drug therapy
CPT/HCPCS: 99283

== ENCOUNTER 2018-05-10 15:53 | Emergency (ER) | payer SELFPAY ==
--- NOTE | 2018-05-10 16:58 | EDM.PDOC ---
ED HPI GENERAL MEDICAL PROBLEM - General Chief Complaint: Abdominal Pain Stated Complaint: RT SIDE PAIN Time Seen by Provider: 05/10/18 16:16 Source of Information: Reports: Patient, RN Notes Reviewed History Limitations: Reports: No Limitations - History of Present Illness INITIAL COMMENTS - FREE TEXT/NARRATIVE: Patient is a 27 year old male who presents to the ED for the evaluation of right sided flank pain that has been present for 2 weeks. He does note that he has had a cold for the last 2 weeks. The patient states that the pain comes and goes and is worsened by coughing, bearing down to have a BM or if he bends to his right side. He denies any nausea/vomiting/diarrhea, fevers/chills, chest pain, or any urinary symptoms. He states his last BM was this morning and this was normal for him. He denies any abdominal surgeries. He has taken ibuprofen 800 mg at bedtime for pain relief, as he is side sleeper and this did seem to help some. 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 He does also have high blood pressure for which he take lisinopril and HCTZ. His PCP was Ai Menon, but she has moved and he is without primary care at this time. He is a smokeless tobacco user, an occasional social drinker and does admit to using marijuana infrequently. Right Flank Pain Score (Numeric/FACES): 1 - Related Data Allergies Allergy/AdvReac Type Severity Reaction Status Date / Time No Known Allergies Allergy Verified 12/19/17 10:11 Home Meds: Home Meds Lisinopril [Prinivil] 40 mg PO DAILY 07/12/14 [History] Albuterol [Proventil HFA] 6.7 gm INH Q4H PRN 09/22/16 [History] hydroCHLOROthiazide [Hydrochlorothiazide] 25 mg PO DAILY 12/19/17 [History] Hydrocodone/Chlorphen P-Stirex [Tussionex Pennkinetic Susp] 5 ml PO Q12H PRN # 60 ml 05/10/18 [Rx] Past Medical History HEENT History: Reports: Other (See Below) Other HEENT History: freq strep throat Cardiovascular History: Reports: Hypertension Respiratory History: Reports: Asthma Other Respiratory History: hospitalized with pleurisy Musculoskeletal History: Reports: Gout, Other (See Below) Other Musculoskeletal History: ACL injury to left knee Psychiatric History: Reports: Anxiety - Past Surgical History HEENT Surgical History: Reports: None Cardiovascular Surgical History: Reports: None Respiratory Surgical History: Reports: None Musculoskeletal Surgical History: Reports: None Social & Family History - Family History Family Medical History: Noncontributory Cardiac: Reports: CAD, Hypertension, [place] Endocrine/Metabolic: Reports: Diabetes, type II - Tobacco Use Smoking Status *Q: Never Smoker Tobacco Use Within Last Twelve Months: Smokeless Tobacco - Caffeine Use Caffeine Use: Reports: Coffee, Energy Drinks, Soda - Alcohol Use Alcohol Use History: Yes Alcohol Use Frequency: Rarely, Socially - Recreational Drug Use Recreational Drug Use: Yes Recreational Drug Type: Reports: Marijuana/Hashish Recreational Drug Use Frequency: Rarely - Living Situation & Occupation Living situation: Reports: Single Occupation: Employed ED ROS GENERAL - Review of Systems Review Of Systems: See Below Constitutional: Denies: Fever, Chills, Weakness, Fatigue HEENT: Reports: No Symptoms Respiratory: Reports: Cough Cardiovascular: Reports: No Symptoms Endocrine: Reports: No Symptoms GI/Abdominal: Denies: Constipation, Diarrhea, Decreased Appetite, Nausea, Vomiting : Reports: Flank Pain (right sided). Denies: Dysuria, Frequency, Urgency Musculoskeletal: Reports: No Symptoms Skin: Reports: No Symptoms Neurological: Reports: No Symptoms Psychiatric: Reports: No Symptoms Hematologic/Lymphatic: Reports: No Symptoms Immunologic: Reports: No Symptoms ED EXAM, GI/ABD - Physical Exam Exam: See Below Exam Limited By: No Limitations General Appearance: Alert, WD/WN, No Apparent Distress Eyes: Bilateral: Normal Appearance Ears: Normal External Exam Nose: Normal Inspection Throat/Mouth: Normal Inspection, Normal Oropharynx, No Airway Compromise Head: Atraumatic, Normocephalic Neck: Normal Inspection, Supple, Non-Tender, Full Range of Motion Respiratory/Chest: No Respiratory Distress, Lungs Clear, Normal Breath Sounds, No Accessory Muscle Use, Chest Non-Tender Cardiovascular: Normal Peripheral Pulses, Regular Rate, Rhythm, No Murmur GI/Abdominal Exam: Normal Bowel Sounds, Soft, No Distention, Tender (slight point tenderness to right flank. palpation is hard to appreciate due to patient body habitus). No: Rigid, Rebound Back Exam: Normal Inspection, Full Range of Motion. No: Muscle Spasm Extremities: Normal Inspection, Normal Range of Motion, Normal Capillary Refill Neurological: Alert, Oriented, Normal Cognition, Normal Reflexes, No Motor/ Sensory Deficits Psychiatric: Normal Affect, Normal Mood Skin Exam: Warm, Dry, Intact, Normal Color, No Rash Lymphatic: No Adenopathy Course - Vital Signs Last Recorded V/S: Last Vital Signs Temp 96.3 F 05/10/18 16:15 Pulse 107 H 05/10/18 16:15 Resp 18 05/10/18 16:15 BP 162/107 H 05/10/18 16:15 Pulse Ox 96 05/10/18 16:15 - Orders/Labs/Meds Labs: Laboratory Tests 05/10/18 05/10/18 05/10/18 Range/Units 17:02 17:02 17:02 WBC 9.25 H (4.23-9.07) K/mm3 RBC 5.03 (4.63-6.08) M/mm3 Hgb 14.3 (13.7-17.5) gm/L Hct 41.8 (40.1-51.0) % MCV 83.1 (79.0-92.2) fl MCH 28.4 (25.7-32.2) pg MCHC 34.2 (32.2-35.5) g/dl RDW Std Deviation 40.7 (35.1-43.9) fL Plt Count 264 (163-337) K/mm3 MPV 11.6 (9.4-12.3) fl Neutrophils % (Manual) 72 H (40-60) % Band Neutrophils % 2 (0-10) % Lymphocytes % (Manual) 20 (20-40) % Atypical Lymphs % 0 % Monocytes % (Manual) 4 (2-10) % Eosinophils % (Manual) 1 (0.8-7.0) % Basophils % (Manual) 1 (0.2-1.2) Platelet Estimate Adequate RBC Morph Comment Normal Sodium 133 L (136-145) mEq/L Potassium 4.0 (3.5-5.1) mEq/L Chloride 98 (98-107) mEq/L Carbon Dioxide 26 (21-32) mEq/L Anion Gap 13.0 (5-15) BUN 13 (7-18) mg/dL Creatinine 0.9 (0.7-1.3) mg/dL Est Cr Clr Drug Dosing 139.33 mL/min Estimated GFR (MDRD) > 60 (>60) mL/min BUN/Creatinine Ratio 14.4 (14-18) Glucose 300 H (74-106) mg/dL Calcium 9.0 (8.5-10.1) mg/dL Total Bilirubin 0.1 L (0.2-1.0) mg/dL AST 44 H (15-37) U/L ALT 60 (16-63) U/L Alkaline Phosphatase 49 (46-116) U/L C-Reactive Protein 3.6 H* (<1.0) mg/dL Total Protein 7.5 (6.4-8.2) g/dl Albumin 3.3 L (3.4-5.0) g/dl Globulin 4.2 gm/dL Albumin/Globulin Ratio 0.8 L (1-2) Urine Color (Yellow) Urine Appearance (Clear) Urine pH (5.0-8.0) Ur Specific [place] (1.005-1.030) Urine Protein (Negative) Urine Glucose (UA) (Negative) Urine Ketones (Negative) Urine Occult Blood (Negative) Urine Nitrite (Negative) Urine Bilirubin (Negative) Urine Urobilinogen (0.2-1.0) Ur Leukocyte Esterase (Negative) Urine RBC (0-5) /hpf Urine WBC (0-5) /hpf Ur Epithelial Cells (0-5) /hpf Urine Bacteria (FEW) /hpf Urine Mucus (FEW) /hpf 05/10/18 Range/Units 18:00 WBC (4.23-9.07) K/mm3 RBC (4.63-6.08) M/mm3 Hgb (13.7-17.5) gm/L Hct (40.1-51.0) % MCV (79.0-92.2) fl MCH (25.7-32.2) pg MCHC (32.2-35.5) g/dl RDW Std Deviation (35.1-43.9) fL Plt Count (163-337) K/mm3 MPV (9.4-12.3) fl Neutrophils % (Manual) (40-60) % Band Neutrophils % (0-10) % Lymphocytes % (Manual) (20-40) % Atypical Lymphs % % Monocytes % (Manual) (2-10) % Eosinophils % (Manual) (0.8-7.0) % Basophils % (Manual) (0.2-1.2) Platelet Estimate RBC Morph Comment Sodium (136-145) mEq/L Potassium (3.5-5.1) mEq/L Chloride (98-107) mEq/L Carbon Dioxide (21-32) mEq/L Anion Gap (5-15) BUN (7-18) mg/dL Creatinine (0.7-1.3) mg/dL Est Cr Clr Drug Dosing mL/min Estimated GFR (MDRD) (>60) mL/min BUN/Creatinine Ratio (14-18) Glucose (74-106) mg/dL Calcium (8.5-10.1) mg/dL Total Bilirubin (0.2-1.0) mg/dL AST (15-37) U/L ALT (16-63) U/L Alkaline Phosphatase (46-116) U/L C-Reactive Protein (<1.0) mg/dL Total Protein (6.4-8.2) g/dl Albumin (3.4-5.0) g/dl Globulin gm/dL Albumin/Globulin Ratio (1-2) Urine Color Light yellow (Yellow) Urine Appearance Clear (Clear) Urine pH 6.5 (5.0-8.0) Ur Specific [place] 1.025 (1.005-1.030) Urine Protein 2+ H (Negative) Urine Glucose (UA) 2+ H (Negative) Urine Ketones Negative (Negative) Urine Occult Blood Negative (Negative) Urine Nitrite Negative (Negative) Urine Bilirubin Negative (Negative) Urine Urobilinogen 0.2 (0.2-1.0) Ur Leukocyte Esterase Negative (Negative) Urine RBC 0-5 (0-5) /hpf Urine WBC 0-5 (0-5) /hpf Ur Epithelial Cells 0-5 (0-5) /hpf Urine Bacteria Occasional (FEW) /hpf Urine Mucus Not seen (FEW) /hpf - Re-Assessments/Exams Free Text/Narrative Re-Assessment/Exam: 05/10/18 17:03 Pt presents to ED for evaluation of right sided flank pain. This is likely musculoskeletal in origin, due to history of cough and cold like symptoms for 2 weeks. Will order CBC, CMP, CRP, and UA for further evaluation. 05/10/18 18:40 His labs are essentially WNL, his blood sugar is elevated but he had eaten just before his arrival to ED and was drinking a Pepsi. His UA showed some protein and glucose. It was recommended that he follow up with a new primary care provider, he states that he has seen Meg Wright in past. I believe that he may be borderline diabetic, but cannot determine this from his workup in ER today. As for his side pain, I believe that may be pulled a muscle while coughing. He has been provided tussionex cough syrup for use before bedtime. Departure - Departure Time of Disposition: 18:43 Disposition: Home, Self-Care 01 Condition: Fair Clinical Impression: Strain of abdominal muscle Qualifiers: Encounter type: initial encounter Qualified Code(s): S39.011A - Strain of muscle, fascia and tendon of abdomen, initial encounter - Discharge Information *PRESCRIPTION DRUG MONITORING PROGRAM REVIEWED*: No *COPY OF PRESCRIPTION DRUG MONITORING REPORT IN PATIENT MIKEY: No Prescriptions: Hydrocodone/Chlorphen P-Stirex [Tussionex Pennkinetic Susp] 5 ml PO Q12H PRN # 60 ml PRN Reason: Cough Instructions: Muscle Strain, [id number] Referrals: PCP,None [Primary Care Provider] - Meg Wright, [employer] [Nurse Practitioner] - Forms: ED Department Discharge Additional Instructions: You have been evaluated in the ED for your right sided pain. This is most likely a muscular strain likely due to coughing. You have been provided cough medicine at [facility] on [address], please take 5mL by mouth 1 hour before bedtime. Please follow up with Meg Wright for further evaluation and chronic problem management. Please return to ED if your symptoms should change or worsen.
[2018-05-10 18:41] VITALS: BP 162/107
== END 2018-05-10 18:50 | disposition home or self-care (01) ==
LOC: JD.ED 15:53
DX: S39.011A Strain of muscle, fascia and tendon of abdomen, initial encounter (principal); I10 Essential (primary) hypertension; F17.290 Nicotine dependence, other tobacco product, uncomplicated; Z79.899 Other long term (current) drug therapy; X58.XXXA Exposure to other specified factors, initial encounter
CPT/HCPCS: 36415; 80053; 81001; 85007; 85027; 86140; 99284

== ENCOUNTER 2019-01-08 16:10 | Emergency (ER) | payer SELFPAY ==
[2019-01-08 16:23] VITALS: BP 146/85
--- NOTE | 2019-01-08 16:34 | EDM.PDOC ---
ED HPI GENERAL MEDICAL PROBLEM - General Chief Complaint: Skin Complaint Stated Complaint: INFECTED CUT ON ARM Time Seen by Provider: 01/08/19 16:24 Source of Information: Reports: Patient History Limitations: Reports: No Limitations - History of Present Illness INITIAL COMMENTS - FREE TEXT/NARRATIVE: 28-year-old male resents to the ED with pain and inflammation around a contact on his distal posterior right arm. States injury occurred about 2 and half days ago when he came down out of a semitruck and caught his arm on the door latch.. This resulted in a deep 2 cm laceration in this area. He has not been placing any antibiotic cream on the area. He believes his tetanus toxoid is up-to-date. Onset: Gradual Onset Date: 01/06/19 Duration: Day(s):, Getting Worse Location: Reports: Upper Extremity, Right (Right posterior distal arm.) Quality: Reports: Ache, Burning Severity: Moderate Improves with: Reports: None Worsens with: Reports: Other (Worse with touching the area.) Context: Reports: Trauma (Laceration right posterior arm 2 days ago). 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: Other (see below) (None.) Right Arm Pain Score (Numeric/FACES): 6 - Related Data Allergies Allergy/AdvReac Type Severity Reaction Status Date / Time No Known Allergies Allergy Verified 01/08/19 16:23 Home Meds: Home Meds Lisinopril [Prinivil] 40 mg PO DAILY 07/12/14 [History] Albuterol [Proventil HFA] 6.7 gm INH Q4H PRN 09/22/16 [History] hydroCHLOROthiazide [Hydrochlorothiazide] 25 mg PO DAILY 12/19/17 [History] Hydrocodone/Chlorphen P-Stirex [Tussionex Pennkinetic Susp] 5 ml PO Q12H PRN # 60 ml 05/10/18 [Rx] Doxycycline [Vibramycin] 100 mg PO BID #20 cap 01/08/19 [Rx] Past Medical History HEENT History: Reports: Other (See Below) Other HEENT History: freq strep throat Cardiovascular History: Reports: Hypertension Respiratory History: Reports: Asthma Other Respiratory History: hospitalized with pleurisy Musculoskeletal History: Reports: Gout, Other (See Below) Other Musculoskeletal History: ACL injury to left knee Psychiatric History: Reports: Anxiety - Past Surgical History HEENT Surgical History: Reports: None Cardiovascular Surgical History: Reports: None Respiratory Surgical History: Reports: None Musculoskeletal Surgical History: Reports: None Social & Family History - Family History Family Medical History: Noncontributory Cardiac: Reports: CAD, Hypertension, [place] Endocrine/Metabolic: Reports: Diabetes, type II - Tobacco Use Smoking Status *Q: Never Smoker - Caffeine Use Caffeine Use: Reports: Coffee, Energy Drinks, Soda - Living Situation & Occupation Living situation: Reports: Single Occupation: Employed ED ROS GENERAL - Review of Systems Review Of Systems: See Below Constitutional: Reports: No Symptoms HEENT: Reports: No Symptoms Respiratory: Reports: No Symptoms Cardiovascular: Reports: Blood Pressure Problem Endocrine: Reports: No Symptoms GI/Abdominal: Reports: No Symptoms : Reports: No Symptoms Musculoskeletal: Reports: Arm Pain (Right arm pain at site of recent laceration which is now become secondarily infected.) Skin: Reports: Erythema (With increased warmth in a circumferential fashion around a 2 cm laceration distal posterior right arm.) Neurological: Reports: No Symptoms Psychiatric: Reports: No Symptoms Hematologic/Lymphatic: Reports: No Symptoms Immunologic: Reports: No Symptoms ED EXAM, SKIN/RASH Exam: See Below Exam Limited By: No Limitations General Appearance: Alert, WD/WN Extremities: Increased Warmth, Other (Examination reveals a 2 cm fairly deep laceration to the posterior aspect of his right distal arm. This is now 2-1/2 days old. It is gaping about 2 mm. Has secondary infection or cellulitis in a circumferential fashion around the round about 6 cm in diameter. It is warm and tender to touch.) Neurological: Alert, Oriented, CN II-XII Intact, Normal Cognition Psychiatric: Normal Affect, Normal Mood Skin: Warm, Dry, Intact, Normal Color, Erythema (Patch of cellulitis right posterior distal arm.) Location, Skin: Upper Extremity, Right Course - Vital Signs Last Recorded V/S: Last Vital Signs Temp 36.3 C 01/08/19 16:19 Pulse 100 01/08/19 16:19 Resp 16 01/08/19 16:19 BP 146/85 H 01/08/19 16:19 Pulse Ox 95 01/08/19 16:19 - Radiology Interpretation Free Text/Narrative:: 28-year-old male presents to the ED with a secondary wound infection posterior distal right arm. He injured the area 2 and half days ago on a sharp object which caused a 2 cm laceration. He has not been cleaning or treating it with any topical antibiotics. He is appreciated of the wound is become erythematous and much more painful over the last 12 hours. Examination reveals a 2 cm laceration which is starting to heal. It has become secondarily infected with a area of cellulitis proximal to be 6 cm in diameter around the cut. Plan wound will be cleansed and topical antibiotic bacitracin placed in the ED. He will be started on antibiotic doxycycline 200 mg initial dose and then 100 mg twice a day for the next 10 days to clear up infection. Follow-up if not markedly improved in 72 hours Departure - Departure Time of Disposition: 16:31 Disposition: Home, Self-Care 01 Condition: Fair Clinical Impression: Wound infection - Discharge Information *PRESCRIPTION DRUG MONITORING PROGRAM REVIEWED*: Not Applicable *COPY OF PRESCRIPTION DRUG MONITORING REPORT IN PATIENT MIKEY: Not Applicable Prescriptions: Doxycycline [Vibramycin] 100 mg PO BID #20 cap Instructions: Cellulitis, Adult Referrals: Kathryn De La Paz PA-C [Primary Care Provider] - Forms: ED Department Discharge Additional Instructions: Evaluation the emergency room today in regards to the contrary wound infection right posterior arm. At about 2 days ago with a deep laceration approximately 2 cm in length right posterior distal arm. As you indicated the areas burning hot and tender to touch. Examination shows that the wound has become secondarily infected. We call this cellulitis --infection under the skin. Treatment is to daily cleanse the wound with soap and water. Then apply topical antibiotic such as bacitracin for the next 3-4 days as this will help the infection get better a little faster as well. Oral antibiotic is to be doxycycline 100 mg twice daily for the next 10 days. Take 2 tablets the first dose with food. Expect marked improvement over the next 48-72 hours. Return to medical care sooner if the redness and streaking up her arm towards her armpit over the next 48 hours or so.
== END 2019-01-08 16:50 | disposition home or self-care (01) ==
LOC: JD.ED 16:10
DX: S41.111A Laceration without foreign body of right upper arm, initial encounter (principal); L03.113 Cellulitis of right upper limb; I10 Essential (primary) hypertension; J45.909 Unspecified asthma, uncomplicated; Z79.899 Other long term (current) drug therapy; W26.8XXA Contact with other sharp object(s), not elsewhere classified, initial encounter
CPT/HCPCS: 99282

== ENCOUNTER 2019-07-15 11:11 | Emergency (ER) | payer SELFPAY ==
--- NOTE | 2019-07-15 12:54 | EDM.PDOC ---
ED HPI GENERAL MEDICAL PROBLEM - General Chief Complaint: Lower Extremity Injury/Pain Stated Complaint: red right toe Time Seen by Provider: 07/15/19 12:03 Source of Information: Reports: Patient History Limitations: Reports: No Limitations - History of Present Illness INITIAL COMMENTS - FREE TEXT/NARRATIVE: The patient presents with right great toe pain. He says a few nights ago he stubbed his right great toe. Part of his nail came off. He has no drainage or pain to the tip but the MTP joint has swelling and pain. He does have a history of gout. He was on allupironal. He quit that months ago because he was eating better. Onset: Sudden Duration: Day(s): Location: Reports: Lower Extremity, Right (great toe) Quality: Reports: Sharp Severity: Moderate Improves with: Reports: Immobilization Worsens with: Reports: Movement Context: Reports: Trauma (Stubbed his great toe) Associated Symptoms: Reports: No Other Symptoms Right Toe-Hailux Pain Score (Numeric/FACES): 10 - Related Data Allergies Allergy/AdvReac Type Severity Reaction Status Date / Time No Known Allergies Allergy Verified 07/15/19 12:05 Home Meds: Home Meds lisinopriL [Prinivil] 40 mg PO DAILY 07/12/14 [History] Albuterol [Proventil HFA] 6.7 gm INH Q4H PRN 09/22/16 [History] hydroCHLOROthiazide [Hydrochlorothiazide] 25 mg PO DAILY 12/19/17 [History] Hydrocodone/Chlorphen P-Stirex [Tussionex Pennkinetic Susp] 5 ml PO Q12H PRN # 60 ml 05/10/18 [Rx] Doxycycline [Vibramycin] 100 mg PO BID #20 cap 01/08/19 [Rx] Allopurinol [Zyloprim] 100 mg PO DAILY #30 tablet 07/15/19 [Rx] Hydrocodone/Acetaminophen [Hydrocodon-Acetaminophen 5-325] 1 - 2 each PO Q6HR PRN #20 tablet 07/15/19 [Rx] Past Medical History HEENT History: Reports: Other (See Below) Other HEENT History: freq strep throat Cardiovascular History: Reports: Hypertension Respiratory History: Reports: Asthma Other Respiratory History: hospitalized with pleurisy Musculoskeletal History: Reports: Gout, Other (See Below) Other Musculoskeletal History: ACL injury to left knee Psychiatric History: Reports: Anxiety - Past Surgical History HEENT Surgical History: Reports: None Cardiovascular Surgical History: Reports: None Respiratory Surgical History: Reports: None Musculoskeletal Surgical History: Reports: None Social & Family History - Family History Family Medical History: Noncontributory Cardiac: Reports: CAD, Hypertension, PA Endocrine/Metabolic: Reports: Diabetes, type II - Tobacco Use Smoking Status *Q: Never Smoker - Caffeine Use Caffeine Use: Reports: Soda - Recreational Drug Use Recreational Drug Use: No - Living Situation & Occupation Living situation: Reports: Single Occupation: Employed Review of Systems - Review of Systems Review Of Systems: See Below Constitutional: Reports: No Symptoms Eyes: Reports: No Symptoms Ears: Reports: No Symptoms Nose: Reports: No Symptoms Mouth/Throat: Reports: No Symptoms Respiratory: Reports: No Symptoms Cardiovascular: Reports: No Symptoms GI/Abdominal: Reports: No Symptoms Genitourinary: Reports: No Symptoms Musculoskeletal: Reports: Other (right great toe pain) Skin: Reports: No Symptoms ED EXAM, GENERAL - Physical Exam Exam: See Below Exam Limited By: No Limitations General Appearance: Alert, No Apparent Distress Ears: Normal External Exam Nose: Normal Inspection Head: Atraumatic, Normocephalic Neck: Normal Inspection Respiratory/Chest: No Respiratory Distress Extremities: Other (Part of the nail of the right great toe is missing but there is no eruthema or drainage. 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 Take an antiinflammatory such as motrin or aleve for the pain. If that does not help, try the hydrocodone. Please return if you are worse. Sepsis Event Note - Evaluation Sepsis Screening Result: No Definite Risk - Focused Exam Vital Signs: Vital Signs Temp Pulse Resp BP Pulse Ox 07/15/19 12:02 97.8 F 78 16 169/126 H 97 Date Exam was Performed: 07/15/19 Time Exam was Performed: 12:49
== END 2019-07-15 13:13 | disposition home or self-care (01) ==
LOC: JD.ED 11:11
CPT/HCPCS: 99283

== ENCOUNTER 2022-03-20 21:03 | Emergency (ER) | payer BC ==
[2022-03-20] MEDS ORDERED: Famotidine 20 MG/2 ML SDV IVPUSH STA (21:28)
[2022-03-20] MEDS ORDERED: diphenhydrAMINE 50 MG/ML SDV IVPUSH ONE (21:28)
[2022-03-20] MEDS ORDERED: methylPREDNISolone Sodium Succinate 125 MG/2 ML SDV IVPUSH ONE (21:28)
[2022-03-20] MEDS ORDERED: Ondansetron 4 MG/2 ML SDV IVPUSH ONE (21:33)
[2022-03-21 01:16] VITALS: BP 98/50; PULSE 65
== END 2022-03-21 01:15 | disposition home or self-care (01) ==
LOC: JD.ED 21:03
DX: T78.40XA Allergy, unspecified, initial encounter (principal); J45.909 Unspecified asthma, uncomplicated; I10 Essential (primary) hypertension; E11.9 Type 2 diabetes mellitus without complications; Z91.013 Allergy to seafood; Z79.899 Other long term (current) drug therapy; Z87.891 Personal history of nicotine dependence
CPT/HCPCS: 96374; 96375; 99283; J1200; J2405; J2930; J3490; 99284

== ENCOUNTER 2023-09-04 07:31 | Inpatient (IN) | payer BC ==
[2023-09-04] MEDS: Ondansetron 4 MG Tab.DIS PO ONE (08:14)
[2023-09-04] MEDS: hydrALAZINE 25 MG Tab PO STA (08:22)
[2023-09-04] MEDS: cloNIDine 0.1 MG Tab PO ONE (08:23)
[2023-09-04 08:32] LABS: BASOPHILS ABSOLUTE AUTO 0.1 K/mm3 (0.0-0.2); BASOPHILS PERCENT AUTO 1.1 % (0.0-1.0); EOSINOPHILS ABSOLUTE AUTO 0.1 K/mm3 (0.0-0.4); EOSINOPHILS PERCENT AUTO 2.2 % (0.0-6.0); HEMATOCRIT 43.1 % (42.0-52.0); HEMOGLOBIN 15.3 gm/dl (14.0-18.0); IMMATURE GRAN ABSOLUTE AUTO 0.01 K/mm3 (0.00-0.05); IMMATURE GRAN PERCENT AUTO 0.2 % (0.0-0.4); LYMPHOCYTES ABSOLUTE AUTO 0.9 K/mm3 (1.0-4.8); LYMPHOCYTES PERCENT AUTO 19.9 % (24.0-44.0); MEAN CORPUSCULAR HEMOGLOBIN 30.5 pg (28.0-32.0); MEAN CORPUSCULAR HGB CONC 35.5 g/dl (32.0-36.0); MEAN CORPUSCULAR VOLUME 85.9 fl (83.0-99.0); MEAN PLATELET VOLUME 9.5 fl (9.4-12.4); MONOCYTES ABSOLUTE AUTO 0.6 K/mm3 (0.0-0.8); MONOCYTES PERCENT AUTO 12.8 % (0.0-8.0); NEUTROPHILS PERCENT AUTO 63.8 % (41.0-71.0); PLATELET COUNT,PLT 198 K/mm3 (150-400); RED BLOOD CELL COUNT 5.02 M/mm3 (4.52-5.90); WHITE BLOOD CELL COUNT,WBC 4.62 K/mm3 (3.9-11.3)
[2023-09-04 08:47] LABS: BARBITURATE SCREEN,URINE NEGATIVE (CUTOFF=200); BENZODIAZEPINES SCREEN,URINE NEGATIVE (CUTOFF=150); BUPRENORPHINE SCREEN,URINE NEGATIVE (CUTOFF=10); METHADONE SCREEN, URINE NEGATIVE (CUT0FF=200); METHAMPHETAMINES SCREEN, URINE NEGATIVE (CUTOFF=500); OXYCODONE SCREEN,URINE NEGATIVE (CUT0FF=100); THC SCREEN,URINE 20 NG/ML NEGATIVE (CUTOFF=50)
[2023-09-04 08:48] LABS: AMPHETAMINES SCREEN, URINE NEGATIVE (CUTOFF=500)
[2023-09-04 08:50] LABS: A/G RATIO 0.9 (1-2); ALBUMIN 3.1 g/dl (3.4-5.0); ANION GAP 13.1 (5-15); BILIRUBIN TOTAL 1.1 mg/dL (0.2-1.0); BUN/CREATININE RATIO 7.1 (14-18); CALCIUM 8.7 mg/dL (8.5-10.1); CREATININE 0.7 mg/dL (0.7-1.3); EST CRCL DRUG DOSING (CG) 171.21 mL/min; POTASSIUM,K 3.1 mEq/L (3.5-5.1); PROTEIN TOTAL,TP 6.4 g/dl (6.4-8.2)
[2023-09-04] MEDS ORDERED: Enoxaparin 40 MG/0.4 ML Syringe SUBCUT SCH (09:00)
[2023-09-04] MEDS: Metoprolol Tartrate 25 MG Tab PO ONE (10:19)
[2023-09-04] MEDS: LORazepam 2 MG/ML SDV IVPUSH ONE (11:41)
[2023-09-04] MEDS: Sodium Chloride 0.9% 10 ML Syringe FLUSH PRN (11:42)
[2023-09-04] MEDS ORDERED: Docusate Sodium 100 MG Cap PO PRN (13:24)
[2023-09-04] MEDS ORDERED: Ondansetron 4 MG Tab.DIS PO PRN (13:24)
[2023-09-04] MEDS ORDERED: Albuterol 0.083% 2.5 MG/3 ML Neb Soln NEB PRN (13:29)
[2023-09-04] MEDS ORDERED: LORazepam 0.5 MG Tab PO PRN (13:39)
[2023-09-04 13:48] LABS: INR 1.05; PROTHROMBIN TIME 11.2 SECONDS (9.7-12.0)
[2023-09-04] MEDS: Sodium Chloride 0.9% 1,000 ML IV SCH (14:35)
[2023-09-04] MEDS: Potassium Chloride 10 MEQ in Premix Bag 1 BAG IV SCH (14:35)
[2023-09-04] MEDS: Thiamine 100 MG Tab PO SCH (14:35)
[2023-09-04] MEDS: Ondansetron 4 MG/2 ML SDV IV PRN (14:35)
[2023-09-04] MEDS: Folic Acid 1 MG Tab PO SCH (14:36)
[2023-09-04] MEDS: LORazepam 1 MG Tab PO PRN (14:39)
[2023-09-04] MEDS: Magnesium Sulfate/Water 4 GM in Premix Bag 1 BAG IV ONE (16:59)
[2023-09-05] MEDS: Acetaminophen 325 MG Tab PO PRN (03:56)
[2023-09-05 05:03] LABS: BASOPHILS ABSOLUTE AUTO 0.1 K/mm3 (0.0-0.2); BASOPHILS PERCENT AUTO 1.2 % (0.0-1.0); EOSINOPHILS ABSOLUTE AUTO 0.2 K/mm3 (0.0-0.4); EOSINOPHILS PERCENT AUTO 4.4 % (0.0-6.0); HEMATOCRIT 42.3 % (42.0-52.0); HEMOGLOBIN 14.9 gm/dl (14.0-18.0); IMMATURE GRAN ABSOLUTE AUTO 0.02 K/mm3 (0.00-0.05); IMMATURE GRAN PERCENT AUTO 0.4 % (0.0-0.4); LYMPHOCYTES ABSOLUTE AUTO 1.5 K/mm3 (1.0-4.8); LYMPHOCYTES PERCENT AUTO 28.2 % (24.0-44.0); MEAN CORPUSCULAR HEMOGLOBIN 30.6 pg (28.0-32.0); MEAN CORPUSCULAR HGB CONC 35.2 g/dl (32.0-36.0); MEAN CORPUSCULAR VOLUME 86.9 fl (83.0-99.0); MONOCYTES ABSOLUTE AUTO 0.6 K/mm3 (0.0-0.8); MONOCYTES PERCENT AUTO 11.7 % (0.0-8.0); NEUTROPHILS ABSOLUTE AUTO 2.8 K/mm3 (1.8-7.7); NEUTROPHILS PERCENT AUTO 54.1 % (41.0-71.0); PLATELET COUNT,PLT 151 K/mm3 (150-400); RED BLOOD CELL COUNT 4.87 M/mm3 (4.52-5.90); WHITE BLOOD CELL COUNT,WBC 5.21 K/mm3 (3.9-11.3)
[2023-09-05 05:29] LABS: A/G RATIO 0.8 (1-2); ALBUMIN 2.6 g/dl (3.4-5.0); ANION GAP 12.6 (5-15); BILIRUBIN TOTAL 1.3 mg/dL (0.2-1.0); BUN/CREATININE RATIO 8.8 (14-18); CALCIUM 8.1 mg/dL (8.5-10.1); CREATININE 0.8 mg/dL (0.7-1.3); EST CRCL DRUG DOSING (CG) 149.81 mL/min; MAGNESIUM 1.4 mg/dL (1.8-2.4); PHOSPHORUS 3.2 mg/dL (2.6-4.7); POTASSIUM,K 3.6 mEq/L (3.5-5.1); PROTEIN TOTAL,TP 5.9 g/dl (6.4-8.2)
[2023-09-05] MEDS: hydrALAZINE 20 MG/ML SDV IVPUSH ONE ×2 (06:56→20:55)
[2023-09-05] MEDS: Magnesium Sulfate/Water 4 GM in Premix Bag 1 BAG IV ONE (08:07)
[2023-09-05] MEDS: Enoxaparin 40 MG/0.4 ML Syringe SUBCUT SCH (08:08)
[2023-09-05] MEDS: Pantoprazole 40 MG Tab.CR PO SCH (08:08)
[2023-09-05] MEDS: Potassium Chloride 10 MEQ in Premix Bag 1 BAG IV SCH (12:42)
[2023-09-05] MEDS: cloNIDine 0.1 MG Tab PO PRN (17:04)
[2023-09-05] MEDS: Loperamide 2 MG Cap PO PRN (18:37)
[2023-09-06 05:44] LABS: BASOPHILS ABSOLUTE AUTO 0.1 K/mm3 (0.0-0.2); BASOPHILS PERCENT AUTO 0.9 % (0.0-1.0); EOSINOPHILS ABSOLUTE AUTO 0.3 K/mm3 (0.0-0.4); EOSINOPHILS PERCENT AUTO 6.1 % (0.0-6.0); HEMATOCRIT 43.7 % (42.0-52.0); HEMOGLOBIN 15.4 gm/dl (14.0-18.0); IMMATURE GRAN ABSOLUTE AUTO 0.03 K/mm3 (0.00-0.05); IMMATURE GRAN PERCENT AUTO 0.6 % (0.0-0.4); LYMPHOCYTES ABSOLUTE AUTO 1.3 K/mm3 (1.0-4.8); LYMPHOCYTES PERCENT AUTO 25.2 % (24.0-44.0); MEAN CORPUSCULAR HEMOGLOBIN 30.7 pg (28.0-32.0); MEAN CORPUSCULAR HGB CONC 35.2 g/dl (32.0-36.0); MEAN CORPUSCULAR VOLUME 87.1 fl (83.0-99.0); MEAN PLATELET VOLUME 10.6 fl (9.4-12.4); MONOCYTES ABSOLUTE AUTO 0.6 K/mm3 (0.0-0.8); MONOCYTES PERCENT AUTO 11.4 % (0.0-8.0); NEUTROPHILS ABSOLUTE AUTO 2.9 K/mm3 (1.8-7.7); NEUTROPHILS PERCENT AUTO 55.8 % (41.0-71.0); PLATELET COUNT,PLT 181 K/mm3 (150-400); RED BLOOD CELL COUNT 5.02 M/mm3 (4.52-5.90); WHITE BLOOD CELL COUNT,WBC 5.27 K/mm3 (3.9-11.3)
[2023-09-06 06:07] LABS: A/G RATIO 0.8 (1-2); ALBUMIN 2.9 g/dl (3.4-5.0); ANION GAP 12.9 (5-15); BILIRUBIN TOTAL 0.9 mg/dL (0.2-1.0); BUN/CREATININE RATIO 14.3 (14-18); CALCIUM 8.9 mg/dL (8.5-10.1); CREATININE 0.7 mg/dL (0.7-1.3); EST CRCL DRUG DOSING (CG) 171.21 mL/min; MAGNESIUM 1.8 mg/dL (1.8-2.4); POTASSIUM,K 3.9 mEq/L (3.5-5.1); PROTEIN TOTAL,TP 6.6 g/dl (6.4-8.2)
[2023-09-06] MEDS: Magnesium Sulfate/Water 2 GM in Premix Bag 1 BAG IV ONE (08:20)
[2023-09-06] MEDS: Colchicine 0.6 MG Tab PO ONE (11:20)
[2023-09-07 06:07] LABS: BASOPHILS PERCENT AUTO 0.7 % (0.0-1.0); EOSINOPHILS ABSOLUTE AUTO 0.3 K/mm3 (0.0-0.4); EOSINOPHILS PERCENT AUTO 5.8 % (0.0-6.0); HEMATOCRIT 44.2 % (42.0-52.0); HEMOGLOBIN 15.4 gm/dl (14.0-18.0); IMMATURE GRAN ABSOLUTE AUTO 0.02 K/mm3 (0.00-0.05); IMMATURE GRAN PERCENT AUTO 0.3 % (0.0-0.4); LYMPHOCYTES ABSOLUTE AUTO 1.6 K/mm3 (1.0-4.8); LYMPHOCYTES PERCENT AUTO 27.4 % (24.0-44.0); MEAN CORPUSCULAR HEMOGLOBIN 29.9 pg (28.0-32.0); MEAN CORPUSCULAR HGB CONC 34.8 g/dl (32.0-36.0); MEAN CORPUSCULAR VOLUME 85.8 fl (83.0-99.0); MEAN PLATELET VOLUME 10.4 fl (9.4-12.4); MONOCYTES ABSOLUTE AUTO 0.8 K/mm3 (0.0-0.8); MONOCYTES PERCENT AUTO 13.6 % (0.0-8.0); NEUTROPHILS PERCENT AUTO 52.2 % (41.0-71.0); PLATELET COUNT,PLT 182 K/mm3 (150-400); RED BLOOD CELL COUNT 5.15 M/mm3 (4.52-5.90); WHITE BLOOD CELL COUNT,WBC 5.83 K/mm3 (3.9-11.3)
[2023-09-07 06:40] LABS: A/G RATIO 0.8 (1-2); ANION GAP 11.9 (5-15); BILIRUBIN TOTAL 0.8 mg/dL (0.2-1.0); EST CRCL DRUG DOSING (CG) 119.85 mL/min; MAGNESIUM 1.6 mg/dL (1.8-2.4); POTASSIUM,K 3.9 mEq/L (3.5-5.1); PROTEIN TOTAL,TP 6.8 g/dl (6.4-8.2)
[2023-09-07] MEDS: Losartan 50 MG Tab PO SCH (09:07)
[2023-09-07] MEDS: Magnesium Sulfate/Water 2 GM in Premix Bag 1 BAG IV ONE (09:09)
[2023-09-07] MEDS: cloNIDine 0.1 MG Tab PO PRN (10:49)
[2023-09-07 14:33] VITALS: BP 160/108; PULSE 96
== END 2023-09-07 12:40 | disposition home or self-care (01) | DRG 775 ==
LOC: JD.ED 07:31 → JD.ICU 13:08
PROVIDERS: ADMIT Internal Medicine; ATTEND Internal Medicine
DX: F10.939 Alcohol use, unspecified with withdrawal, unspecified (principal); M10.471 Other secondary gout, right ankle and foot; I10 Essential (primary) hypertension; F32.A Depression, unspecified; F41.9 Anxiety disorder, unspecified; E11.9 Type 2 diabetes mellitus without complications; J45.20 Mild intermittent asthma, uncomplicated; E87.6 Hypokalemia; R74.01 Elevation of levels of liver transaminase levels; E80.6 Other disorders of bilirubin metabolism; M79.661 Pain in right lower leg; E83.52 Hypercalcemia; Z79.899 Other long term (current) drug therapy; Z91.013 Allergy to seafood; Z79.51 Long term (current) use of inhaled steroids; Z86.16 Personal history of COVID-19; Z98.84 Bariatric surgery status
CPT/HCPCS: 36415; 80053; 80143; 80179; 80306; 80307; 82947; 83690; 83735; 84100; 84550; 85025; 85610; 93971-26-RT; 93971-RT; 96374; 99285; 99285-25; A9270-GY; J0360; J1650; J2060; J2405; J3475; J3480; J3490; J7030

== ENCOUNTER 2023-09-24 10:57 | Emergency (ER) | payer BC ==
[2023-09-24 11:36] LABS: BASOPHILS ABSOLUTE AUTO 0.1 K/mm3 (0.0-0.2); BASOPHILS PERCENT AUTO 0.4 % (0.0-1.0); EOSINOPHILS PERCENT AUTO 0.1 % (0.0-6.0); HEMATOCRIT 44.7 % (42.0-52.0); HEMOGLOBIN 15.9 gm/dl (14.0-18.0); IMMATURE GRAN PERCENT AUTO 0.7 % (0.0-0.4); LYMPHOCYTES ABSOLUTE AUTO 0.9 K/mm3 (1.0-4.8); LYMPHOCYTES PERCENT AUTO 6.2 % (24.0-44.0); MEAN CORPUSCULAR HEMOGLOBIN 30.4 pg (28.0-32.0); MEAN CORPUSCULAR HGB CONC 35.6 g/dl (32.0-36.0); MEAN CORPUSCULAR VOLUME 85.5 fl (83.0-99.0); MEAN PLATELET VOLUME 10.3 fl (9.4-12.4); MONOCYTES PERCENT AUTO 7.2 % (0.0-8.0); NEUTROPHILS ABSOLUTE AUTO 12.2 K/mm3 (1.8-7.7); NEUTROPHILS PERCENT AUTO 85.4 % (41.0-71.0); PLATELET COUNT,PLT 282 K/mm3 (150-400); RED BLOOD CELL COUNT 5.23 M/mm3 (4.52-5.90); WHITE BLOOD CELL COUNT,WBC 14.26 K/mm3 (3.9-11.3)
[2023-09-24] MEDS: Ketorolac 30 MG/ML SDV IVPUSH ONE (11:56)
[2023-09-24] MEDS: Sodium Chloride 0.9% 10 ML Syringe FLUSH PRN (11:58)
[2023-09-24] MEDS: Sodium Chloride 0.9% 1,000 ML IV STA (11:58)
[2023-09-24 12:10] LABS: A/G RATIO 0.8 (1-2); ALBUMIN 3.2 g/dl (3.4-5.0); ANION GAP 15.3 (5-15); BUN/CREATININE RATIO 6.7 (14-18); C-REACTIVE PROTEIN 14.59 mg/dL (<0.30); CALCIUM 8.6 mg/dL (8.5-10.1); CREATININE 1.2 mg/dL (0.7-1.3); EST CRCL DRUG DOSING (CG) 99.88 mL/min; POTASSIUM,K 3.3 mEq/L (3.5-5.1); PROTEIN TOTAL,TP 7.3 g/dl (6.4-8.2)
[2023-09-24 12:52] LABS: CORONAVIRUS COVID-19 NAA POSITIVE (NEGATIVE); INFLUENZA A NAA NEGATIVE (NEGATIVE); RESPIRATORY SYNCYTIAL VIR NAA NEGATIVE (NEGATIVE)
[2023-09-24] MEDS: cefTRIAXone 2 GM in Sodium Chloride 0.9% 100 ML IV ONE (13:09)
[2023-09-24] MEDS: Codeine/guaiFENesin 10-100 MG/5 ML Syrup 5 ML Syringe PO ONE (13:10)
[2023-09-24 14:15] VITALS: BP 141/88; PULSE 100
== END 2023-09-24 14:15 | disposition home or self-care (01) ==
LOC: JD.ED 10:57
DX: U07.1 COVID-19 (principal); J12.82 Pneumonia due to coronavirus disease 2019; J45.909 Unspecified asthma, uncomplicated; E11.9 Type 2 diabetes mellitus without complications; I10 Essential (primary) hypertension; Z91.013 Allergy to seafood; Z79.51 Long term (current) use of inhaled steroids; Z86.19 Personal history of other infectious and parasitic diseases; Z86.16 Personal history of COVID-19
CPT/HCPCS: 0241U; 36415; 71046; 71046-26; 80053; 83605; 85025; 86140; 87040; 93005; 93010; 96361; 96365; 96375; 99284; 99285-25; A9270-GY; J0696; J1885; J3490; J7030

== ENCOUNTER 2023-11-19 11:45 | Emergency (ER) | payer BC ==
[2023-11-19] MEDS: Sodium Chloride 0.9% 1,000 ML IV SCH (12:32)
[2023-11-19] MEDS: Sodium Chloride 0.9% 10 ML Syringe FLUSH PRN (12:33)
[2023-11-19 12:43] LABS: BASOPHILS ABSOLUTE AUTO 0.1 K/mm3 (0.0-0.2); EOSINOPHILS ABSOLUTE AUTO 0.1 K/mm3 (0.0-0.4); EOSINOPHILS PERCENT AUTO 1.3 % (0.0-6.0); HEMATOCRIT 49.4 % (42.0-52.0); HEMOGLOBIN 17.2 gm/dl (14.0-18.0); IMMATURE GRAN ABSOLUTE AUTO 0.02 K/mm3 (0.00-0.05); IMMATURE GRAN PERCENT AUTO 0.3 % (0.0-0.4); LYMPHOCYTES ABSOLUTE AUTO 1.6 K/mm3 (1.0-4.8); LYMPHOCYTES PERCENT AUTO 19.6 % (24.0-44.0); MEAN CORPUSCULAR HEMOGLOBIN 30.5 pg (28.0-32.0); MEAN CORPUSCULAR HGB CONC 34.8 g/dl (32.0-36.0); MEAN CORPUSCULAR VOLUME 87.6 fl (83.0-99.0); MEAN PLATELET VOLUME 10.1 fl (9.4-12.4); MONOCYTES ABSOLUTE AUTO 0.6 K/mm3 (0.0-0.8); MONOCYTES PERCENT AUTO 7.8 % (0.0-8.0); NEUTROPHILS ABSOLUTE AUTO 5.5 K/mm3 (1.8-7.7); PLATELET COUNT,PLT 217 K/mm3 (150-400); RED BLOOD CELL COUNT 5.64 M/mm3 (4.52-5.90)
[2023-11-19 13:06] LABS: A/G RATIO 0.9 (1-2); ALBUMIN 3.3 g/dl (3.4-5.0); ANION GAP 14.4 (5-15); BILIRUBIN TOTAL 0.7 mg/dL (0.2-1.0); BUN/CREATININE RATIO 6.3 (14-18); CALCIUM 8.2 mg/dL (8.5-10.1); CREATININE 0.8 mg/dL (0.7-1.3); EST CRCL DRUG DOSING (CG) 149.81 mL/min; ETHANOL BLOOD MEDICAL 0.31 gm% (0.00); POTASSIUM,K 3.4 mEq/L (3.5-5.1); PROTEIN TOTAL,TP 6.9 g/dl (6.4-8.2)
[2023-11-19 14:57] LABS: BARBITURATE SCREEN,URINE NEGATIVE (CUTOFF=200); BENZODIAZEPINES SCREEN,URINE NEGATIVE (CUTOFF=150); BUPRENORPHINE SCREEN,URINE NEGATIVE (CUTOFF=10); METHADONE SCREEN, URINE NEGATIVE (CUT0FF=200); METHAMPHETAMINES SCREEN, URINE NEGATIVE (CUTOFF=500); OXYCODONE SCREEN,URINE NEGATIVE (CUT0FF=100); THC SCREEN,URINE 20 NG/ML NEGATIVE (CUTOFF=50)
[2023-11-19] MEDS: Famotidine 20 MG Tab PO ONE (14:57)
[2023-11-19] MEDS: Metoprolol Tartrate 50 MG Tab PO ONE (14:57)
[2023-11-19] MEDS: LORazepam 2 MG/ML SDV IVPUSH ONE ×2 (14:57→16:51)
[2023-11-19 14:58] LABS: AMPHETAMINES SCREEN, URINE NEGATIVE (CUTOFF=500)
[2023-11-19] MEDS: Dextrose 5%-0.45% NaCl 1,000 ML IV SCH (14:59)
[2023-11-19] MEDS: cloNIDine 0.1 MG Tab PO ONE (16:12)
[2023-11-19] MEDS: LORazepam 1 MG Tab PO ONE (20:28)
[2023-11-19 20:32] VITALS: BP 149/103; PULSE 83
== END 2023-11-19 20:30 | disposition home or self-care (01) ==
LOC: JD.ED 11:45
DX: F10.220 Alcohol dependence with intoxication, uncomplicated (principal); I10 Essential (primary) hypertension; E11.9 Type 2 diabetes mellitus without complications; F17.210 Nicotine dependence, cigarettes, uncomplicated; Z86.16 Personal history of COVID-19; Z91.013 Allergy to seafood; Z91.018 Allergy to other foods
CPT/HCPCS: 36415; 80053; 80306; 80307; 85025; 96374; 96376; 99284; A9270; J2060; J3490; J7030; J7042